=== PATIENT | male | born 1985 | race Caucasian/White ===

== ENCOUNTER 2016-10-08 20:38 | Emergency (ER) | payer OTHER ==
[~2016-10-08] VITALS: Ht 182.9 cm; Wt 92.0 kg
[2016-10-08 20:41] VITALS: BP 125/68; PULSE 77; RESP 15; TEMP 98.1; O2SAT 97
== END 2016-10-08 22:05 | disposition left against medical advice (07) ==
LOC: NED 20:38
DX: R23.8 Other skin changes (principal); Z53.21 Procedure and treatment not carried out due to patient leaving prior to being seen by health care provider
CPT/HCPCS: 99281

== ENCOUNTER 2017-03-26 21:12 | Inpatient (IN) | payer SELFPAY ==
[2017-03-26 21:14] VITALS: BP 130/70; PULSE 112; RESP 15; TEMP 99.8; O2SAT 96
--- NOTE | 2017-03-26 23:30 | PD ---
HPI Chief Complaint: Pain: Acute or Chronic Time Seen by Provider: 23:29 Travel History International Travel<30 days: No Contact w/Intl Traveler<30days: No Traveled to known affect area: No History of Present Illness HPI 31-year-old male came to the emergency room with history of right shoulder pain. Patient has history of osteomyelitis last year of the right shoulder joint and went through a major surgery. Patient says he was an IV drug abuser but has not used in past 1 year. This pain started again for past couple days. He's been running fever as well. Vital signs in triage had a temp of 99.5 and heart rate of 112. PFSH Past Medical History Narrative Medical List of his past medical, surgical, social and family history is reviewed from the nursing note. Bipolar Disorder: Yes Anxiety: Yes Depression: Yes Cancer: No Cardiovascular Problems: No Diminished Hearing: No Endocrine: No Genitourinary: No Headaches: Yes Hepatitis: Yes (HEP C) Immune Disorder: No Musculoskeletal: No Neurologic: No Psychiatric: Yes (BIPOLAR) Reproductive: No Respiratory: Yes Seizures: No Sleep Apnea: Yes Thyroid Disease: No Ulcer: No Past Surgical History Genitourinary Surgery: Yes ( CHILD ) Other Surgery: No Social History Alcohol Use: No (DENIES) Tobacco Use: Yes (1 PPD) Substance Use: No (DENIES 03-21-16) Allergies-Medications (Allergen,Severity, Reaction): Coded Allergies: *MDRO Multi-Drug Resistant Organism (Verified Adverse Reaction, Unknown, ) MRSA (blood & shoulder) - 01/2016 MRSA PCR screen (nares) positive - 02/07/16 Comments List of his allergies reviewed from the nursing note. Reported Meds & Prescriptions Reported Meds & Active Scripts Active No Active Prescriptions or Reported Medications Narrative Medication List of his home medications reviewed from the nursing note. Review of Systems Except as stated in HPI: all other systems reviewed are Neg Physical Exam Narrative GENERAL: Awake, alert, moderate distress SKIN: Focused skin assessment warm/dry. Scarring on the right shoulder HEAD: Atraumatic. Normocephalic. EYES: Pupils equal and round. No scleral icterus. No injection or drainage. ENT: No nasal bleeding or discharge. Mucous membranes pink and moist. NECK: Trachea midline. No JVD. CARDIOVASCULAR: Regular rate and rhythm. No murmur appreciated. RESPIRATORY: No accessory muscle use. Clear to auscultation. Breath sounds equal bilaterally. GASTROINTESTINAL: Abdomen soft, non-tender, nondistended. Hepatic and splenic margins not palpable. MUSCULOSKELETAL: No obvious deformities. No clubbing. No cyanosis. No edema. Tender to touch on the left shoulder, decreased range of motion NEUROLOGICAL: Awake and alert. No obvious cranial nerve deficits. Motor grossly within normal limits. Normal speech. PSYCHIATRIC: Appropriate mood and affect; insight and judgment normal. Data Data Last Documented VS Orders Orders Complete Blood Count With Diff (03/26/17 23:36) Comprehensive Metabolic Panel (03/26/17 23:36) Lactic Acid Sepsis Protocol (03/26/17 23:36) Urinalysis - C+S If Indicated (03/26/17 23:36) Blood Culture (03/26/17 23:36) Chest, Single Ap (03/26/17 23:36) Blood Glucose (03/26/17 23:36) Ecg Monitoring (03/26/17 23:36) Iv Access Insert/Monitor (03/26/17 23:36) Oximetry (03/26/17 23:36) Oxygen Administration (03/26/17 23:36) Vancomycin Inj (Vancomycin Inj) (03/26/17 23:36) Piperacil-Tazo 4.5 Gm Premix (Zosyn 4.5 (03/26/17 23:36) Sodium Chlor 0.9% 1000 Ml Inj (Ns 1000 M (03/26/17 23:45) Sodium Chlor 0.9% 1000 Ml Inj (Ns 1000 M (03/26/17 23:45) Ketorolac Inj (Toradol Inj) (03/26/17 23:45) Westergren Sedimentation Rate (03/26/17 23:38) Ct Shoulder W Iv Contrast (03/26/17 ) Drug Screen, Random Urine (03/26/17 23:38) C-Reactive Protein (Crp) (03/26/17 23:55) Iohexol 350 Inj (Omnipaque 350 Inj) (03/27/17 01:22) Admit To Inpatient (03/27/17 ) Vital Signs (Adult) Q4H (03/27/17 02:33) Activity Oob With Assistance (03/27/17 02:33) [employer] / Telemetry .CONTINUOUS (03/27/17 02:33) Sodium Chloride 0.9% Flush (Ns Flush) (03/27/17 02:45) Sodium Chloride 0.9% Flush (Ns Flush) (03/27/17 09:00) Case Management Consult (03/27/17 02:33) Naloxone Inj (Narcan Inj) (03/27/17 02:45) Inpatient Certification (03/27/17 ) Consult Infectious Disease (03/27/17 ) Admit Order (Ed Use Only) (03/27/17 02:37) Labs Laboratory Tests Test 03/26/17 23:55 03/27/17 00:30 03/27/17 02:35 Blood Urea Nitrogen 11 MG/DL Creatinine 1.12 MG/DL Random Glucose 108 MG/DL Total Protein 7.1 GM/DL Albumin 3.4 GM/DL Calcium Level 8.1 MG/DL Alkaline Phosphatase 93 U/L Aspartate Amino Transf (AST/SGOT) 25 U/L Alanine Aminotransferase (ALT/SGPT) 51 U/L Total Bilirubin 1.0 MG/DL Sodium Level 137 MEQ/L Potassium Level 4.1 MEQ/L Chloride Level 103 MEQ/L Carbon Dioxide Level 27.0 MEQ/L Anion Gap 7 MEQ/L Estimat Glomerular Filtration Rate 78 ML/MIN Lactic Acid Level 1.6 mmol/L C-Reactive Protein 8.70 MG/DL White Blood Count 10.6 TH/MM3 Red Blood Count 4.01 MIL/MM3 Hemoglobin 11.5 GM/DL Hematocrit 34.1 % Mean Corpuscular Volume 85.1 FL Mean Corpuscular Hemoglobin 28.5 PG Mean Corpuscular Hemoglobin Concent 33.5 % Red Cell Distribution Width 13.6 % Platelet Count 174 TH/MM3 Mean Platelet Volume 7.6 FL Neutrophils (%) (Auto) 67.0 % Lymphocytes (%) (Auto) 18.1 % Monocytes (%) (Auto) 13.6 % Eosinophils (%) (Auto) 0.9 % Basophils (%) (Auto) 0.4 % Neutrophils # (Auto) 7.1 TH/MM3 Lymphocytes # (Auto) 1.9 TH/MM3 Monocytes # (Auto) 1.4 TH/MM3 Eosinophils # (Auto) 0.1 TH/MM3 Basophils # (Auto) 0.0 TH/MM3 CBC Comment DIFF FINAL Differential Comment Erythrocyte Sedimentation Rate 24 mm/hr Urine Color YELLOW Urine Turbidity CLEAR Urine pH 6.5 Urine Specific [place] GREATER THAN 1.050 Urine Protein 30 mg/dL Urine Glucose (UA) NEG mg/dL Urine Ketones NEG mg/dL Urine Occult Blood NEG Urine Nitrite NEG Urine Bilirubin NEG Urine Urobilinogen LESS THAN 2.0 MG/DL Urine Leukocyte Esterase NEG Urine RBC 1 /hpf Urine WBC 1 /hpf Urine Squamous Epithelial Cells 1 /hpf Urine Bacteria RARE /hpf Urine Mucus FEW /lpf Microscopic Urinalysis Comment CATH-CULTURE IND Urine Opiates Screen POS Urine Barbiturates Screen NEG Urine Amphetamines Screen POS Urine Benzodiazepines Screen NEG Urine Cocaine Screen POS Urine Cannabinoids Screen NEG MDM Medical Decision Making Medical Screen Exam Complete: Yes Emergency Medical Condition: Yes Medical Record Reviewed: Yes Differential Diagnosis Osteomyelitis, possible IV drug abuse related, shoulder arthritis Narrative Course 1:35 AM blood test results are back. Patient CRP and sedimentation rate are elevated. Given his initial vital signs patient was approached as a sepsis and was given antibiotic and IV fluids as per sepsis protocol. CT scan has been ordered. Awaiting for the CT scan to be done and resulted. Patient was treated for pain. 2:[address] was suggestive of new changes suggesting acute osteomyelitis. Patient has been admitted to the hospitalist. Awaiting for the orthopedic consultation. 2:41 AM case was discussed with Dr. Machado from orthopedics who asked to put a consult for Dr. Cespedes since he had operated on this patient last year for osteomyelitis in the same site. Critical Care Narrative Aggregate critical care time was 45 minutes. Time to perform other separately billable procedures was not included in the critical care time. My time did not include minutes spent treating any other patients simultaneously or on activities that did not directly contribute to the patient's treatment. The services I provided to this patient were to treat and/or prevent clinically significant deterioration that could result in: Sepsis, sepsis protocol, acute ostial myelitis I provided critical care services requiring my management, as noted below: Chart data review, documentation time, medication orders and management, vital sign assessments/reviewing monitor data, ordering and reviewing lab tests, ordering and interpreting/reviewing x-rays and diagnostic studies, care of the patient and discussion of the patient with the admitting physicians. Procedures EKG Prior to Arrival: No Sepsis Criteria SIRS Criteria (2 or more): Heart rate over 90 Sepsis Criteria (SIRS+source): Infect source susp/known Physician Communication Physician Communication Dr. Machado Diagnosis Primary Impression: Acute osteomyelitis Additional Impression: Severe sepsis Admitting Information Admitting Physician Requests: Admit Scripts No Active Prescriptions or Reported Meds Dallin Kaiser MD Mar 26, 2017 23:30
[2017-03-26] MEDS ORDERED: PIPERACIL-TAZO 4.5 GM PREMIX 100 ML IV STA (23:36)
[2017-03-26] MEDS ORDERED: VANCOMYCIN INJ 1,000 MG in SODIUM CHLOR 0.9% 250 ML INJ 250 ML IV STA (23:36)
[2017-03-26] MEDS ORDERED: KETOROLAC TROMETHAMINE 30 MG/ML (IVP) VIAL IV PUSH ONE (23:45)
[2017-03-26] MEDS ORDERED: SODIUM CHLOR 0.9% 1000 ML INJ 1,000 ML IV ONE ×2 (23:45)
[2017-03-26 23:49] VITALS: RESP 16; O2SAT 98
--- NOTE | 2017-03-27 00:04 | RADRPT ---
EXAM DATE/TIME: 03/26/2017 23:49 [facility] COMPARISON: CHEST SINGLE AP, February 28, 2016, 10:19. INDICATIONS : Chest pain MEDICAL HISTORY : None. SURGICAL HISTORY : None. ENCOUNTER: Initial ACUITY: 1 day PAIN SCORE: 7/10 LOCATION: Bilateral chest FINDINGS: A single view of the chest demonstrates the lungs to be symmetrically aerated without evidence of mas s, infiltrate or effusion. The cardiomediastinal contours are unremarkable. Osseous structures are intact. CONCLUSION: 1. No acute cardiopulmonary disease. Selwyn Navarro MD on March 27, 2017 at 0:02 Board Certified Radiologist. This report was verified electronically.
[2017-03-27 00:23] LABS: ANION GAP 7 MEQ/L (5-15); AST (GOT) 25 U/L (15-37); BLOOD UREA NITROGEN 11 MG/DL (7-18); CHLORIDE 103 MEQ/L (98-107); GLOMERULAR FILTRATION RATE 78 ML/MIN (>89); POTASSIUM 4.1 MEQ/L (3.5-5.1); SODIUM (NA) 137 MEQ/L (136-145)
[2017-03-27 00:24] LABS: ALT (GPT) 51 U/L (12-78)
[2017-03-27 00:26] LABS: ALKALINE PHOSPHATASE 93 U/L (45-117)
[2017-03-27 00:45] LABS: AUTOMATED NEUTROPHIL # 7.1 TH/MM3 (1.8-7.7); BASOPHIL % 0.4 % (0.0-2.0); EOSINOPHIL # 0.1 TH/MM3 (0-0.4); EOSINOPHIL % 0.9 % (0.0-4.0); HEMATOCRIT 34.1 % (39.0-51.0); HEMO FLAGS DIFF FINAL; LYMPH % 18.1 % (9.0-44.0); LYMPHOCYTE # 1.9 TH/MM3 (1.0-4.8); MEAN CELL VOLUME 85.1 FL (80.0-100.0); MEAN CORPUSCULAR HEMOGLOBIN 28.5 PG (27.0-34.0); MEAN CORPUSCULAR HGB CONC 33.5 % (32.0-36.0); MONO % 13.6 % (0.0-8.0); PLATELET COUNT 174 TH/MM3 (150-450); RED BLOOD COUNT 4.01 MIL/MM3 (4.50-5.90); RED CELL DISTRIBUTION WIDTH 13.6 % (11.6-17.2); WHITE BLOOD COUNT 10.6 TH/MM3 (4.0-11.0)
[2017-03-27] MEDS ORDERED: IOHEXOL 350 MG/ML 10 ML VIAL (for RAD DIAG) IVCONTRAST ONE (01:22)
--- NOTE | 2017-03-27 02:16 | RADRPT ---
EXAM DATE/TIME: 03/27/2017 01:04 [facility] COMPARISON: CT THORAX W CONTRAST, February 26, 2016, 19:39. INDICATIONS : Right shoulder pain. Evaluate for osteomyelitis. IV CONTRAST: 100 cc Omnipaque 350 (iohexol) IV RADIATION DOSE: 29.76 CTDIvol (mGy) MEDICAL HISTORY : Hepatitis C. Osteomyelitis to right shoulder. SURGICAL HISTORY : None. ENCOUNTER: Initial ACUITY: 3 days PAIN SCALE: 8/10 LOCATION: Right shoulder. TECHNIQUE: Volumetric scanning of the shoulder was performed. Using automated exposure control and adjustment o f the mA and/or kV according to patient size, radiation dose was kept as low as reasonably achievable to obtain optimal diagnostic quality images. DICOM format image data is available electronically fo r review and comparison. FINDINGS: Previous examinations have demonstrated extensive destructive changes of the right clavicle and clavi cular osteomyelitis. There is diffusely increased sclerosis of the right clavicle with erosive change s along the inferior mid clavicle. There is indistinct soft tissue stranding in this region. There al so 2 small rounded likely metallic densities near this region. Small amount of air density in this re gion is likely venous in etiology. A remaining osseous structures are intact. The there are erosive c hanges of the clavicular head as well as the right first costovertebral junction which appear more ch ronic and similar to previous exam. Visualized portions of the right lung demonstrate minimal atelectasis at the lung base. Remaining sof t tissues are unremarkable. CONCLUSION: 1. Sequela of prior right clavicular osteomyelitis with new erosive changes along the inferior mid cl avicle and indistinct surrounding soft tissue stranding. This finding is concerning for acute osteomy elitis. No definitive drainable fluid collection. 2. Consider MRI examination for better evaluation given the extent of chronic changes in the right cl avicle. 1. Selwyn Navarro MD on March 27, 2017 at 2:03 Board Certified Radiologist. This report was verified electronically.
[2017-03-27] MEDS ORDERED: SODIUM CHLORIDE 0.9% FLUSH 10 ML FLUSH IV FLUSH PRN (02:45)
[2017-03-27] MEDS ORDERED: NALOXONE HCL 0.4 MG/ML AMP IV PRN (02:45)
[2017-03-27 02:59] LABS: BACTERIA, URINE RARE /hpf; BLOOD, URINE NEG (NEG); COMMENT (UR) CATH-CULTURE IND; CULTURE IF INDICATED CATH CULTURE IND; GLUCOSE,URINE NEG (NEG); KETONE, URINE NEG (NEG); MUCUS URINE FEW /lpf (OCC); NITRITE,URINE NEG (NEG); PH, URINE 6.5 (5.0-8.5); SQUAMOUS EPITHELIAL CELL URINE 1 /hpf (0-5); URINE COLOR YELLOW (YELLW/STRAW)
[2017-03-27 05:00] VITALS: BP 117/68; PULSE 63; RESP 18; TEMP 97.5; O2SAT 100
--- NOTE | 2017-03-27 08:27 | HHI.HP ---
[facility] No Primary Care Physician Admission Diagnosis acute osteomyelitis, sepsis Diagnoses: (1) Osteomyelitis of clavicle Chief Complaint: Right shoulder pain Travel History International Travel<30 Days: No Contact w/Intl Traveler <30 Da: No Traveled to Known Affected Are: No History of Present Illness The patient is a 31-year-old male with history of IV drug abuse and right apical osteomyelitis. He presented to the emergency department with complaint of worsening pain of the right shoulder for the past week. He reports fever, chills, night sweats. He had surgery for osteomyelitis of the right clavicle about a year ago. Has continued to use IV drugs, most recently Dilaudid a few days ago. Review of Systems Constitutional: COMPLAINS OF: Fever, Chills, Night Sweats Eyes: DENIES: Blurred vision, Vision loss Ears, nose, mouth, throat: DENIES: Hearing loss Respiratory: DENIES: Cough, Wheezing, Sputum production, Shortness of breath Cardiovascular: DENIES: Chest pain, Palpitations, Dyspnea on Exertion, Lower Extremity Edema Gastrointestinal: DENIES: Abdominal pain, Constipation, Diarrhea, Nausea, Vomiting Genitourinary: DENIES: Urinary frequency, Urinary incontinence, Urgency, Hematuria, Dysuria, Nocturia Musculoskeletal: COMPLAINS OF: Joint pain, DENIES: Muscle aches Integumentary: DENIES: Pruritus, Rash Hematologic/lymphatic: DENIES: Bruising Neurologic: DENIES: Headache Past Family Social History Past Medical History IV drug abuse Mood disorder History of hepatitis C per EMR History of osteomyelitis of the right clavicle Past Surgical History Right clavicle surgery for osteomyelitis Reported Medications None Allergies: Coded Allergies: *MDRO Multi-Drug Resistant Organism (Verified Adverse Reaction, Unknown, ) MRSA (blood & shoulder) - 01/2016 MRSA PCR screen (nares) positive - 02/07/16 Family History The patient states that he does not know his family's medical history Social History Smokes one pack per day. Reports recent IV drug use, Dilaudid. Denies alcohol use. Physical Exam Vital Signs Vital Signs Date Time Temp Pulse Resp B/P (MAP) Pulse Ox O2 Delivery O2 Flow Rate FiO2 03/27/17 05:00 97.5 63 18 117/68 (84) 100 03/26/17 23:49 16 98 Room Air 03/26/17 23:49 98 Room Air 03/26/17 21:14 99.8 112 15 130/70 (90) 96 Room Air Physical Exam GENERAL: Well-nourished, well-developed male in no acute distress. HEENT: Normocephalic, atraumatic. Pupils equal, round and reactive. Extraocular movements intact. No scleral icterus. No injection or drainage. Oropharynx is clear. Mucous membranes are moist. MUSCULOSKELETAL: Tenderness over the right clavicle. CARDIOVASCULAR: Regular rate and rhythm without murmurs, gallops, or rubs. RESPIRATORY: Clear to auscultation. No wheezes, rales, or rhonchi. Breathing is non-labored. GASTROINTESTINAL: Abdomen soft, non-tender, nondistended. EXTREMITIES: No lower extremity edema. No calf tenderness. PSYCH: Alert and oriented x 3. Laboratory Laboratory Tests Test 03/26/17 23:55 03/27/17 00:30 03/27/17 02:35 Blood Urea Nitrogen 11 Creatinine 1.12 Random Glucose 108 Total Protein 7.1 Albumin 3.4 Calcium Level 8.1 Alkaline Phosphatase 93 Aspartate Amino Transf (AST/SGOT) 25 Alanine Aminotransferase (ALT/SGPT) 51 Total Bilirubin 1.0 Sodium Level 137 Potassium Level 4.1 Chloride Level 103 Carbon Dioxide Level 27.0 Anion Gap 7 Estimat Glomerular Filtration Rate 78 Lactic Acid Level 1.6 C-Reactive Protein 8.70 White Blood Count 10.6 Red Blood Count 4.01 Hemoglobin 11.5 Hematocrit 34.1 Mean Corpuscular Volume 85.1 Mean Corpuscular Hemoglobin 28.5 Mean Corpuscular Hemoglobin Concent 33.5 Red Cell Distribution Width 13.6 Platelet Count 174 Mean Platelet Volume 7.6 Neutrophils (%) (Auto) 67.0 Lymphocytes (%) (Auto) 18.1 Monocytes (%) (Auto) 13.6 Eosinophils (%) (Auto) 0.9 Basophils (%) (Auto) 0.4 Neutrophils # (Auto) 7.1 Lymphocytes # (Auto) 1.9 Monocytes # (Auto) 1.4 Eosinophils # (Auto) 0.1 Basophils # (Auto) 0.0 CBC Comment DIFF FINAL Differential Comment Erythrocyte Sedimentation Rate 24 Urine Color YELLOW Urine Turbidity CLEAR Urine pH 6.5 Urine Specific [place] GREATER THAN 1.050 Urine Protein 30 Urine Glucose (UA) NEG Urine Ketones NEG Urine Occult Blood NEG Urine Nitrite NEG Urine Bilirubin NEG Urine Urobilinogen LESS THAN 2.0 Urine Leukocyte Esterase NEG Urine RBC 1 Urine WBC 1 Urine Squamous Epithelial Cells 1 Urine Bacteria RARE Urine Mucus FEW Microscopic Urinalysis Comment CATH-CULTURE IND Urine Opiates Screen POS Urine Barbiturates Screen NEG Urine Amphetamines Screen POS Urine Benzodiazepines Screen NEG Urine Cocaine Screen POS Urine Cannabinoids Screen NEG Date/Time Source Procedure Growth Status 03/26/17 23:55 Blood Peripheral Aerobic Blood Culture Pending Received 03/26/17 23:55 Blood Peripheral Anaerobic Blood Culture Pending Received 03/27/17 02:35 Urine Catheterized Urine Urine Culture Pending Received Result Diagram: 03/27/17 0030 03/26/17 2355 Imaging Last Impressions Chest X-Ray 03/26/17 2336 Signed Impressions: Service Date/Time: March 23:49 - CONCLUSION: 1. No acute cardiopulmonary disease. Selwyn Navarro MD Upper Extremity CT 03/26/17 0000 Signed Impressions: Service Date/Time: Monday, March 27, 2017 01:04 - CONCLUSION: 1. Sequela of prior right clavicular osteomyelitis with new erosive changes along the inferior mid clavicle and indistinct surrounding soft tissue stranding. This finding is concerning for acute osteomyelitis. No definitive drainable fluid collection. 2. Consider MRI examination for better evaluation given the extent of chronic changes in the right clavicle. 1. MD Nancy Fregosoi VTE Risk Assessment Caprini VTE Risk Assessment: No/Low Risk (score <= 1) Caprini Risk Assessment Model Point Value = 1 Point Value = 2 Point Value = 3 Point Value = 5 Age 41-60 Minor surgery BMI > 25 kg/m2 Swollen legs Varicose veins or History of unexplained or recurrent spontaneous Oral contraceptives or hormone replacement Sepsis (< 1 month) Serious lung disease, including pneumonia (< 1 month) Abnormal pulmonary function Acute myocardial infarction Congestive heart failure (< 1 month) History of inflammatory bowel disease Medical patient at bed rest Age 61-74 Arthroscopic surgery Major open surgery (> 45 min) Laparoscopic surgery (> 45 min) Malignancy Confined to bed (> 72 hours) Immobilizing plaster cast Central venous access Age >= 75 History of VTE Family history of VTE Factor V Leiden Prothrombin [id number] Lupus anticoagulant Anticardiolipin antibodies Elevated serum homocysteine Heparin-induced thrombocytopenia Other congenital or acquired thrombophilia Stroke (< 1 month) Elective arthroplasty Hip, pelvis, or leg fracture Acute spinal cord injury (< 1 month) Prophylaxis Regimen Total Risk Factor Score Risk Level Prophylaxis Regimen 0-1 Low Early ambulation 2 Moderate Order ONE of the following: *Sequential Compression Device (SCD) *Heparin 5000 units SQ BID 3-4 Higher Order ONE of the following medications: *Heparin 5000 units SQ TID *Enoxaparin/Lovenox 40 mg SQ daily (WT < 150 kg, CrCl > 30 mL/min) *Enoxaparin/Lovenox 30 mg SQ daily (WT < 150 kg, CrCl > 10-29 mL/min) *Enoxaparin/Lovenox 30 mg SQ BID (WT < 150 kg, CrCl > 30 mL/min) AND/OR *Sequential Compression Device (SCD) 5 or more Highest Order ONE of the following medications: *Heparin 5000 units SQ TID (Preferred with Epidurals) *Enoxaparin/Lovenox 40 mg SQ daily (WT < 150 kg, CrCl > 30 mL/min) *Enoxaparin/Lovenox 30 mg SQ daily (WT < 150 kg, CrCl > 10-29 mL/min) *Enoxaparin/Lovenox 30 mg SQ BID (WT < 150 kg, CrCl > 30 mL/min) AND *Sequential Compression Device (SCD) Assessment and Plan Assessment and Plan 1. Osteomyelitis, right clavicle: Imaging shows sequela of prior right clavicle osteomyelitis with new erosive changes concerning for acute osteomyelitis. Sedimentation rate and CRP are elevated. Infectious disease and orthopedic surgery consultations have been requested. Continue IV antibiotics. 2. Polysubstance abuse, IV drug abuse: Counseled to quit. 3. Tobacco abuse: Counseled to quit smoking. Drew Salazar MD Mar 27, 2017 08:27
[2017-03-27 08:41] VITALS: BP 110/64; PULSE 81; RESP 16; TEMP 98.5; O2SAT 100
[2017-03-27] MEDS ORDERED: SODIUM CHLORIDE 0.9% FLUSH 10 ML FLUSH IV FLUSH SCH (09:00)
== END 2017-03-27 09:20 | disposition left against medical advice (07) | DRG 872 ==
LOC: NED 21:12 → NEPE 21:12 → NED 22:45 → NEDA 03-27 02:39 → N05B 03-27 04:49
PROVIDERS: ADMIT Family Medicine; ATTEND Family Medicine
DX: A41.9 Sepsis, unspecified organism (principal); M86.111 Other acute osteomyelitis, right shoulder; F31.9 Bipolar disorder, unspecified; R65.20 Severe sepsis without septic shock; F17.210 Nicotine dependence, cigarettes, uncomplicated
CPT/HCPCS: 71010; 73201; 80053; 80307; 81001; 83605; 85025; 85652; 86140; 86403; 87040; 87077; 87086; 87186; 96365; 96366; 96368; 96375; 99291; J1885; J2543; J3370; J7030; J7050; Q9967

== ENCOUNTER 2017-04-15 23:25 | Observation (INO) | payer SELFPAY ==
[~2017-04-15] VITALS: Ht 182.9 cm; Wt 95.0 kg
[2017-04-15 23:26] VITALS: BP 140/92; PULSE 110; RESP 16; TEMP 99.1; O2SAT 95
[2017-04-16 00:11] VITALS: BP 142/76; PULSE 93; RESP 18; TEMP 99.9; O2SAT 97
--- NOTE | 2017-04-16 00:37 | PD ---
HPI Chief Complaint: Chest Pain Time Seen by Provider: 00:11 Travel History International Travel<30 days: No Contact w/Intl Traveler<30days: No Traveled to known affect area: No History of Present Illness HPI The patient is 31 year old male who presents to the [facility] emergency department with a history of chest pain and shortness of breath that began a week ago. It is associated with intermittent sweating. He has had a subjective fever. He has had cough and congestion that began 4-5 days ago. The cough is productive of a green sputum. He reports that the pain is in the left side of his chest. He reports that is a pressure sensation. He reports that the pain is coming and going. On review of systems, he denies any recent neck pain, abdominal pain, vomiting, diarrhea, urinary symptoms, or neurologic symptoms. His last BM was today. No blood in his stool. He smokes 1ppd. He has been using IV drugs intermittent for 4-5 years. He last used Dilaudid today. He last injected cocaine 2 days ago. He incidentally also reports having increased pain in his right shoulder/clavicle. He reports that a year ago he developed osteomyelitis. [facility] Past Medical History Narrative Medical The patient's past medical history is significant for Hepatitis C, IV drug use, osteomyelitis of the right clavicle. Bipolar Disorder: Yes Anxiety: Yes Depression: Yes Cancer: No Cardiovascular Problems: No Diabetes: No Diminished Hearing: No Endocrine: No Gastrointestinal Disorders: No Genitourinary: No Headaches: Yes Hepatitis: Yes (HEP C) Immune Disorder: No Implanted Vascular Access Dvce: No Medical other: Yes (OSTEOMYLITIS RIGHT SHOULDER) Musculoskeletal: No Neurologic: No Psychiatric: Yes (BIPOLAR) Reproductive: No Respiratory: Yes Immunizations Current: Yes Seizures: No Sleep Apnea: Yes Thyroid Disease: No Ulcer: No Tetanus Vaccination: < 5 Years Influenza Vaccination: No Past Surgical History Narrative Surgical The patient's past surgical history is significant for osteomyelitis of the right clavicle related to IV drug use a year ago. Genitourinary Surgery: Yes ( CHILD ) Other Surgery: No Social History Alcohol Use: No (DENIES) Tobacco Use: Yes (1 PPD) Substance Use: Yes (IV DILAUDID- today, IV COCAINE) Allergies-Medications (Allergen,Severity, Reaction): Coded Allergies: *MDRO Multi-Drug Resistant Organism (Verified Adverse Reaction, Unknown, ) MRSA (blood & shoulder) - 01/2016 MRSA PCR screen (nares) positive - 02/07/16 Reported Meds & Prescriptions Reported Meds & Active Scripts Active No Active Prescriptions or Reported Medications Review of Systems Except as stated in HPI: all other systems reviewed are Neg General / Constitutional: Positive: Fever, Chills Eyes: No: Visual changes HENT: Positive: Congestion, No: Headaches, Neck Pain Cardiovascular: Positive: Chest Pain or Discomfort, Diaphoresis, Dyspnea on exertion Respiratory: Positive: Cough, Shortness of Breath Gastrointestinal: No: Nausea, Vomiting, Diarrhea, Abdominal Pain Genitourinary: No: Dysuria Musculoskeletal: No: Pain Skin: No Rash Neurologic: No: Weakness, Focal Abnormalities, Change in Mentation, Slurred Speech, Sensory Disturbance Psychiatric: No: Depression Endocrine: No: Polydipsia Hematologic/Lymphatic: No: Easy Bruising Physical Exam Narrative General: The patient is a well-developed well-nourished male in no acute distress. Head and Neck exam: Head is normocephalic atraumatic. Eyes: EOMI, pupils are equal round and reactive to light. Nose: Midline septum with pink mucous membranes Mouth: Dentition unremarkable. Moist mucus membranes. Posterior oropharynx is not erythematous. No tonsillar hypertrophy. Uvula midline. Airway patent. Neck: No palpable lymphadenopathy. No nuchal rigidity. No thyromegaly. Cardiovascular: Regular rate and rhythm without murmurs, gallops, or rubs. No pulse deficit to the extremities and simultaneous auscultation and palpation of his radial artery. Lungs: Clear to auscultation bilaterally. No wheezes, rhonchi, or rales. Abdomen: Soft, without tenderness to palpation in all 4 quadrants of the abdomen. No guarding, rebound, or rigidity. Normal bowel sounds are audible. No tenderness on palpation of McBurney's point. Extremities: No clubbing, cyanosis, or edema. 2+ pulses in all 4 extremities. The patient on examination of the right shoulder, distal clavicle has scarring present over it. There is no erythema, edema, or warmth. The patient has no loss of range of motion of the right shoulder. The patient reports having tenderness overlying the scar. Back: No spinous process tenderness to palpation. No costovertebral angle tenderness to palpation. Neurologic Exam: Grossly nonfocal. Skin Exam: No rash noted. Intact skin that is warm and dry. Data Data Last Documented VS Vital Signs Date Time Temp Pulse Resp B/P (MAP) Pulse Ox O2 Delivery O2 Flow Rate FiO2 04/16/17 03:00 79 16 130/80 (97) 99 Room Air 04/16/17 00:11 99.9 Orders Orders Electrocardiogram (04/16/17 00:34) Complete Blood Count With Diff (04/16/17 00:34) Basic Metabolic Panel (Bmp) (04/16/17 00:34) Ckmb (Isoenzyme) Profile (04/16/17 00:34) Troponin I (04/16/17 00:34) Chest, Single Ap (04/16/17 00:34) Iv Access Insert/Monitor (04/16/17 00:34) Ecg Monitoring (04/16/17 00:34) Oxygen Administration (04/16/17 00:34) Oximetry (04/16/17 00:34) Urinalysis - C+S If Indicated (04/16/17 00:38) Drug Screen, Random Urine (04/16/17 00:38) Blood Culture (04/16/17 01:04) C-Reactive Protein (Crp) (04/16/17 01:04) Westergren Sedimentation Rate (04/16/17 01:04) Lactic Acid Sepsis Protocol (04/16/17 01:04) Admit Order (Ed Use Only) (04/16/17 03:20) Labs Laboratory Tests Test 04/16/17 00:45 04/16/17 01:20 White Blood Count 10.9 TH/MM3 Red Blood Count 4.88 MIL/MM3 Hemoglobin 14.1 GM/DL Hematocrit 40.7 % Mean Corpuscular Volume 83.4 FL Mean Corpuscular Hemoglobin 28.8 PG Mean Corpuscular Hemoglobin Concent 34.6 % Red Cell Distribution Width 13.9 % Platelet Count 233 TH/MM3 Mean Platelet Volume 8.0 FL Neutrophils (%) (Auto) 80.9 % Lymphocytes (%) (Auto) 11.9 % Monocytes (%) (Auto) 6.7 % Eosinophils (%) (Auto) 0.3 % Basophils (%) (Auto) 0.2 % Neutrophils # (Auto) 8.8 TH/MM3 Lymphocytes # (Auto) 1.3 TH/MM3 Monocytes # (Auto) 0.7 TH/MM3 Eosinophils # (Auto) 0.0 TH/MM3 Basophils # (Auto) 0.0 TH/MM3 CBC Comment DIFF FINAL Differential Comment Erythrocyte Sedimentation Rate 27 mm/hr Blood Urea Nitrogen 9 MG/DL Creatinine 1.15 MG/DL Random Glucose 100 MG/DL Calcium Level 9.2 MG/DL Sodium Level 139 MEQ/L Potassium Level 4.0 MEQ/L Chloride Level 104 MEQ/L Carbon Dioxide Level 30.0 MEQ/L Anion Gap 5 MEQ/L Estimat Glomerular Filtration Rate 75 ML/MIN Total Creatine Kinase 83 U/L Troponin I LESS THAN 0.02 NG/ML C-Reactive Protein 3.69 MG/DL Lactic Acid Level 1.2 mmol/L MDM Medical Decision Making Medical Screen Exam Complete: Yes Emergency Medical Condition: Yes Medical Record Reviewed: Yes Differential Diagnosis Acute coronary syndrome, versus endocarditis, versus anxiety disorder, versus acid reflux, versus pericarditis Narrative Course During the course of the patients emergency department visit, the patients history, examination, and differential diagnosis were reviewed with the patient. The patient had IV access obtained and blood work sent for analysis. The patient was placed on a helper chicken farm with oximetry and blood pressure monitoring. An ECG was done on arrival. The patient's ECG reveals a sinus rhythm heart rate of 92, no acute ST segment elevation or depression, QRS duration is 102 ms, QTc is 400 ms. The patient was initially provided aspirin 324 mg by mouth 1, nitroglycerin 1 inch the chest wall. The patient was given Tylenol for reported headache. The patients laboratory studies were reviewed and remarkable for a white count of 10.9, hemoglobin 14.1, platelets 233 with 80.9 neutrophils, sedimentation rate is 27. Basic metabolic profile is remarkable for a GFR 75, CPK 83, troponin I less than 0.02, C-reactive protein 3.69, lactic acid 1.2. Blood cultures 2 have been drawn. Radiology studies were reviewed and remarkable for a chest x-ray that shows minimal basilar atelectasis. No focal consolidation or effusion. Stable sclerotic changes in the right clavicle compared with March 26, please see recent CT report according to the reading radiologist. The patient's prior laboratory studies were reviewed from his last admission on March 27, sedimentation rate at that time was 24 and now is 27. Blood cultures on his last evaluation were negative. CRP done previously was 8.70 and now is lower at 3.69. I think it is of low likelihood that the patient has endocarditis due to his recent blood cultures that were negative. However, the patient reports that the chest pain is unlike anything he has had before. He is concerned that it may be life-threatening. The patient will be admitted to the chest pain center for rule out serial cardiac enzyme protocol. Once the patient is ruled out, the patient is safe for discharge home. I explained to him that if blood cultures were to come back positive he would be called immediately. The patients results were discussed with the patient, including the plan of care. I explained that further testing and/ or monitoring is indicated based on the patients history, examination, and/ or laboratory findings. Therefore, I recommended admission for additional evaluation. The patient expressed understanding and was agreeable with this plan. The patient was admitted to the hospital in stable condition and sent to a bed under the care of the chest pain center. Diagnosis Primary Impression: Chest pain, rule out acute myocardial infarction Admitting Information Admitting Physician Requests: Observation Scripts No Active Prescriptions or Reported Meds Hodan Earl MD Apr 16, 2017 00:37
[2017-04-16 00:59] LABS: AUTOMATED NEUTROPHIL # 8.8 TH/MM3 (1.8-7.7); BASOPHIL % 0.2 % (0.0-2.0); EOSINOPHIL % 0.3 % (0.0-4.0); HEMATOCRIT 40.7 % (39.0-51.0); HEMO FLAGS DIFF FINAL; LYMPH % 11.9 % (9.0-44.0); LYMPHOCYTE # 1.3 TH/MM3 (1.0-4.8); MEAN CELL VOLUME 83.4 FL (80.0-100.0); MEAN CORPUSCULAR HEMOGLOBIN 28.8 PG (27.0-34.0); MEAN CORPUSCULAR HGB CONC 34.6 % (32.0-36.0); MONO % 6.7 % (0.0-8.0); NEUT % 80.9 % (16.0-70.0); PLATELET COUNT 233 TH/MM3 (150-450); RED BLOOD COUNT 4.88 MIL/MM3 (4.50-5.90); RED CELL DISTRIBUTION WIDTH 13.9 % (11.6-17.2); WHITE BLOOD COUNT 10.9 TH/MM3 (4.0-11.0)
[2017-04-16 01:08] LABS: ANION GAP 5 MEQ/L (5-15); BLOOD UREA NITROGEN 9 MG/DL (7-18); CHLORIDE 104 MEQ/L (98-107); GLOMERULAR FILTRATION RATE 75 ML/MIN (>89); SODIUM (NA) 139 MEQ/L (136-145)
[2017-04-16 01:13] LABS: CREATINE KINASE 83 U/L (39-308)
--- NOTE | 2017-04-16 01:32 | RADRPT ---
EXAM DATE/TIME: 04/16/2017 00:43 [facility] COMPARISON: CT SHOULDER RIGHT W CONTRAST, March 27, 2017, 1:04. INDICATIONS : Chest pain. MEDICAL HISTORY : None. SURGICAL HISTORY : None. ENCOUNTER: Initial ACUITY: 4 - 6 days PAIN SCORE: 6/10 LOCATION: Right chest FINDINGS: A single view of the chest demonstrates the lungs to be symmetrically aerated without evidence of mas s, infiltrate or effusion. The cardiomediastinal contours are unremarkable. Sclerosis involving the right clavicle. See recent CT report. CONCLUSION: 1. Minimal basilar atelectasis. No focal consolidation or effusion. Stable sclerotic changes in the r ight clavicle compared with March 26. See recent CT report. Segun Auguste MD on April 16, 2017 at 1:29 Board Certified Radiologist. This report was verified electronically.
[2017-04-16 03:00] VITALS: BP 130/80; PULSE 79; RESP 16; O2SAT 99
[2017-04-16] MEDS ORDERED: ACETAMINOPHEN 325 MG TAB PO ONE (03:45)
[2017-04-16] MEDS ORDERED: ONDANSETRON HCL 4 MG/2 ML VIAL IV PUSH PRN (04:00)
[2017-04-16] MEDS ORDERED: SODIUM CHLORIDE 0.9% FLUSH 10 ML FLUSH IV FLUSH PRN (04:00)
[2017-04-16] MEDS ORDERED: ASPIRIN 81 MG CHEW TAB CHEW ONE (04:00)
[2017-04-16] MEDS ORDERED: ACETAMINOPHEN 500 MG CPLT PO PRN (04:00)
[2017-04-16] MEDS ORDERED: NITROGLYCERIN 2% OINT 1 GM PACKET TOPICAL ONE (04:15)
[2017-04-16 05:29] LABS: CREATINE KINASE 61 U/L (39-308)
[2017-04-16 05:52] VITALS: BP 107/52; PULSE 72; RESP 17; TEMP 98.2; O2SAT 94
[2017-04-16 06:42] VITALS: PULSE 69
[2017-04-16 07:21] VITALS: BP 100/58; PULSE 65; RESP 16; TEMP 98.4; O2SAT 97
[2017-04-16 08:08] VITALS: PULSE 58
--- NOTE | 2017-04-16 08:12 | HHI.HP ---
HPI Primary Care Physician Diamond Mendoza MD Chief Complaint Chest tightness, dyspnea History of Present Illness 31-year-old male with history of osteomyelitis, bipolar disorder, and IV drug abuse presents to emergency room for further evaluation of increased dyspnea, chest tightness, and diaphoresis. Onset Thursday reports increase in dyspnea, diaphoresis, and intermittent chest tightness. States he was at [facility] being treated for endocarditis and he signed out AMA during [place] stating to help his family. He presents here today to determine if he could restart antibiotic treatment. He does not recall how many doses he completed or how long her was expected to complete therapy. Onset of chest tightness 2 days. No radiation of pain. No associated symptoms of nausea or vomiting. Occurs when he becomes dyspneic followed by diaphoresis. Review of Systems General: No fatigue,weakness, fever, or chills. HEENT: No BARNEY CV: No CP, pressure, or discomfort. No palpitations or dizziness. RESP: No SOB, cough, sputum production. GI: No nausea, vomiting, or bowel changes. : No dysuria MS: No discomfort or change in ROM NEURO: No difficulty with balance, LOC, motor/sensory deficits PSYCH: No current anxiety or depression. No suicidal ideation. SKIN: No rashes, no concerning lesions Past Family Social History Allergies: Coded Allergies: *MDRO Multi-Drug Resistant Organism (Verified Adverse Reaction, Unknown, ) MRSA (blood & shoulder) - 01/2016 MRSA PCR screen (nares) positive - 02/07/16 Past Medical History IV drug abuse, mood disorder, history of hepatitis C, history of osteomyelitis of right clavicle Past Surgical History Right clavicle surgery for osteomyelitis Reported Medications Reported Meds & Active Scripts Active No Active Prescriptions or Reported Medications Active Ordered Medications Current Medications Medications (Trade) Dose Ordered Sig/Aziza Route Start Time Stop Time Status Last Admin (NS Flush) 2 ml UNSCH PRN IV FLUSH 04/16/17 04:00 (NS Flush) 2 ml BID IV FLUSH 04/16/17 09:00 04/16/17 08:03 (Tylenol) 500 mg Q4H PRN PO 04/16/17 04:00 (Zofran Inj) 4 mg Q6H PRN IV PUSH 04/16/17 04:00 Family History Unknown Social History No known diabetes, hypertension, or hyperlipidemia. Current smoker smokes one pack/daily. Endorses IV drug abuse with Dilaudid. Past cardiac testing None Physical Exam Vital Signs Vital Signs Date Time Temp Pulse Resp B/P (MAP) Pulse Ox O2 Delivery O2 Flow Rate FiO2 04/16/17 08:08 58 04/16/17 07:21 98.4 65 16 100/58 (72) 97 04/16/17 06:42 69 04/16/17 05:52 98.2 72 17 107/52 (70) 94 04/16/17 05:34 04/16/17 04:07 21 04/16/17 03:00 79 16 130/80 (97) 99 Room Air 04/16/17 00:11 99.9 93 18 142/76 (98) 97 Room Air 04/15/17 23:26 99.1 110 16 140/92 (108) 95 Room Air Physical Exam GENERAL: Alert WN, WD, NAD, male HEAD: NC, AT CV: RRR, without murmur, rub, gallop, no JVD, S1-S2 no S3-S4. RESP: Clear lungs throughout bilateral, no crackles, wheeze, rhonchi, symmetrical chest rise, nonlabored, able to speak in full sentences ABD: Soft, NT, ND, no masses, positive bowel tones BACK: No scoliosis EXT: Pulses +24, no dependent edema MS: Normal tone 4 extremities, nontender, no obvious deformities, full range of motion NEURO: CN II through CN XII grossly intact, motor strength 5/5, gait WNL PSYCH: A+O 3, flat affect, appropriate speech, poor insight and judgment regarding recent diagnosis of endocarditis and signing out AMA SKIN: Normal turgor, normal texture Laboratory Laboratory Tests Test 04/16/17 00:45 04/16/17 01:20 04/16/17 04:30 04/16/17 07:50 White Blood Count 10.9 Red Blood Count 4.88 Hemoglobin 14.1 Hematocrit 40.7 Mean Corpuscular Volume 83.4 Mean Corpuscular Hemoglobin 28.8 Mean Corpuscular Hemoglobin Concent 34.6 Red Cell Distribution Width 13.9 Platelet Count 233 Mean Platelet Volume 8.0 Neutrophils (%) (Auto) 80.9 Lymphocytes (%) (Auto) 11.9 Monocytes (%) (Auto) 6.7 Eosinophils (%) (Auto) 0.3 Basophils (%) (Auto) 0.2 Neutrophils # (Auto) 8.8 Lymphocytes # (Auto) 1.3 Monocytes # (Auto) 0.7 Eosinophils # (Auto) 0.0 Basophils # (Auto) 0.0 CBC Comment DIFF FINAL Differential Comment Erythrocyte Sedimentation Rate 27 Blood Urea Nitrogen 9 Creatinine 1.15 Random Glucose 100 Calcium Level 9.2 Sodium Level 139 Potassium Level 4.0 Chloride Level 104 Carbon Dioxide Level 30.0 Anion Gap 5 Estimat Glomerular Filtration Rate 75 Total Creatine Kinase 83 61 Troponin I LESS THAN 0.02 LESS THAN 0.02 C-Reactive Protein 3.69 Lactic Acid Level 1.2 Date/Time Source Procedure Growth Status 04/16/17 01:23 Blood Peripheral Aerobic Blood Culture Pending Received 04/16/17 01:23 Blood Peripheral Anaerobic Blood Culture Pending Received Result Diagram: 04/16/17 0045 04/16/17 0045 Imaging Last Impressions Chest X-Ray 04/16/17 0034 Signed Impressions: Service Date/Time: , April 16, 2017 00:43 - CONCLUSION: 1. Minimal basilar atelectasis. No focal consolidation or effusion. Stable sclerotic changes in the right clavicle compared with March 26. See recent CT report. Segun Auguste MD Course EKG Normal sinus rhythm, normal axis, no ST or T-segment changes Caprini VTE Risk Assessment Caprini VTE Risk Assessment: No/Low Risk (score <= 1) Caprini Risk Assessment Model Point Value = 1 Point Value = 2 Point Value = 3 Point Value = 5 Age 41-60 Minor surgery BMI > 25 kg/m2 Swollen legs Varicose veins or History of unexplained or recurrent spontaneous Oral contraceptives or hormone replacement Sepsis (< 1 month) Serious lung disease, including pneumonia (< 1 month) Abnormal pulmonary function Acute myocardial infarction Congestive heart failure (< 1 month) History of inflammatory bowel disease Medical patient at bed rest Age 61-74 Arthroscopic surgery Major open surgery (> 45 min) Laparoscopic surgery (> 45 min) Malignancy Confined to bed (> 72 hours) Immobilizing plaster cast Central venous access Age >= 75 History of VTE Family history of VTE Factor V Leiden Prothrombin [id number] Lupus anticoagulant Anticardiolipin antibodies Elevated serum homocysteine Heparin-induced thrombocytopenia Other congenital or acquired thrombophilia Stroke (< 1 month) Elective arthroplasty Hip, pelvis, or leg fracture Acute spinal cord injury (< 1 month) Prophylaxis Regimen Total Risk Factor Score Risk Level Prophylaxis Regimen 0-1 Low Early ambulation 2 Moderate Order ONE of the following: *Sequential Compression Device (SCD) *Heparin 5000 units SQ BID 3-4 Higher Order ONE of the following medications: *Heparin 5000 units SQ TID *Enoxaparin/Lovenox 40 mg SQ daily (WT < 150 kg, CrCl > 30 mL/min) *Enoxaparin/Lovenox 30 mg SQ daily (WT < 150 kg, CrCl > 10-29 mL/min) *Enoxaparin/Lovenox 30 mg SQ BID (WT < 150 kg, CrCl > 30 mL/min) AND/OR *Sequential Compression Device (SCD) 5 or more Highest Order ONE of the following medications: *Heparin 5000 units SQ TID (Preferred with Epidurals) *Enoxaparin/Lovenox 40 mg SQ daily (WT < 150 kg, CrCl > 30 mL/min) *Enoxaparin/Lovenox 30 mg SQ daily (WT < 150 kg, CrCl > 10-29 mL/min) *Enoxaparin/Lovenox 30 mg SQ BID (WT < 150 kg, CrCl > 30 mL/min) AND *Sequential Compression Device (SCD) Assessment and Plan Assessment and Plan Atypical chest pain-admitted chest pain center. Ruled out with 3 sets of EKGs, cardiac enzymes, and monitored overnight. Seen and evaluated by Dr. Loy Nix. Dr. Nix discussed in length with patient severity of diagnosis of endocarditis. Will obtain medical records from [facility]. If records indicate diagnoses of endocarditis, plan to transfer service to hospitalist. No further cardiac testing required at this time. Tobacco use-strongly encouraged and stressed the importance of tobacco cessation. Instructed patient to quit smoking tobacco. IV drug use-also strongly encouraged to stop using IV drugs 11:55 Notified by RN patient leaving AMA. Spoke with patient in length regarding severity of recent diagnosis of endocarditis (per his report, still awaiting records from [facility]). He still wants to sign out AMA , stating he is going to [facility]. Radha Lomas Apr 16, 2017 08:11
[2017-04-16 08:40] LABS: CREATINE KINASE 50 U/L (39-308)
[2017-04-16] MEDS ORDERED: NITROGLYCERIN 0.4 MG SL 25 TABS/BTL SL PRN (09:00)
[2017-04-16] MEDS ORDERED: SODIUM CHLORIDE 0.9% FLUSH 10 ML FLUSH IV FLUSH SCH (09:00)
[2017-04-16 12:46] LABS: BACTERIA, URINE OCC /hpf; BLOOD, URINE NEG (NEG); COMMENT (UR) CULT NOT INDICATED; CULTURE IF INDICATED CULT NOT INDICATED; GLUCOSE,URINE NEG (NEG); KETONE, URINE NEG (NEG); NITRITE,URINE NEG (NEG); PH, URINE 7.5 (5.0-8.5); SQUAMOUS EPITHELIAL CELL URINE <1 /hpf (0-5); URINE COLOR YELLOW (YELLW/STRAW)
--- NOTE | 2017-04-16 14:59 | EKG ---
Date Performed: 04/16/2017 Time Performed: 04:46:22 PTAGE: 31 years EKG: Sinus rhythm BORDERLINE ECG PREVIOUS TRACING : 04/16/2017 04.45 Since previous tracing, no significant change noted DOCTOR: Loy Nix Interpretating Date/Time 04/16/2017 14:59:37
--- NOTE | 2017-04-16 15:01 | EKG ---
Date Performed: 04/16/2017 Time Performed: 00:08:24 PTAGE: 31 years EKG: Sinus rhythm NORMAL ECG PREVIOUS TRACING : 09/19/2001 19.02 Since previous tracing, no significant change noted DOCTOR: Loy Nix Interpretating Date/Time 04/16/2017 15:00:26
--- NOTE | 2017-04-16 15:02 | EKG ---
Date Performed: 04/16/2017 Time Performed: 07:13:30 PTAGE: 31 years EKG: Sinus rhythm BORDERLINE ECG PREVIOUS TRACING : 04/16/2017 04.46 DOCTOR: Loy Nix Interpretating Date/Time 04/16/2017 15:01:20
== END 2017-04-16 12:53 | disposition left against medical advice (07) ==
LOC: NEPC 23:25 → NEDA 04-16 03:22 → NEPGCP 04-16 05:39
PROVIDERS: ADMIT Internal Medicine Cardiovascular Disease; ATTEND Internal Medicine Cardiovascular Disease
DX: R07.89 Other chest pain (principal); I38 Endocarditis, valve unspecified; R06.02 Shortness of breath; F19.90 Other psychoactive substance use, unspecified, uncomplicated; M25.511 Pain in right shoulder; B19.20 Unspecified viral hepatitis C without hepatic coma; R51 Headache; G47.30 Sleep apnea, unspecified; F17.210 Nicotine dependence, cigarettes, uncomplicated; M86.9 Osteomyelitis, unspecified; R06.00 Dyspnea, unspecified
CPT/HCPCS: 71010; 80048; 81001; 82550; 83605; 84484; 85025; 85652; 86140; 87040; 93005; 99285; G0378

== ENCOUNTER 2017-04-24 22:32 | Inpatient (IN) | payer SELFPAY ==
[~2017-04-24] VITALS: Ht 182.9 cm; Wt 91.0 kg
[2017-04-24 22:36] VITALS: BP 132/87; PULSE 85; RESP 16; TEMP 98.4; O2SAT 99
[2017-04-24 23:24] VITALS: BP 123/67; PULSE 88; RESP 16; O2SAT 98
[2017-04-24] MEDS ORDERED: SODIUM CHLOR 0.9% 1000 ML INJ 1,000 ML IV ONE ×3 (23:37)
--- NOTE | 2017-04-24 23:44 | PD ---
HPI Chief Complaint: Cardiac Complaint Time Seen by Provider: 23:20 Travel History International Travel<30 days: No Contact w/Intl Traveler<30days: No Traveled to known affect area: No History of Present Illness HPI The patient is a 31 year-old male who presents to the emergency department for chest pain, shortness of breath, and right shoulder pain. The patient has a history of endocarditis. Smile is the right scapula. The patient states he was admitted to the hospital one month at [facility] where he was diagnosed with endocarditis. The patient states he signed out against medical communication specialist. The patient was then admitted to [facility] for possible osteomyelitis of the right scapula and signed out against medical communication specialist. The patient was then admitted for chest pain to the chest pain Center to sign out against medical communication specialist. The patient states he has been having fevers, chills, chest pain, shortness of breath. The patient believes it is secondary to his endocarditis and would like to receive treatment. The patient last used IV drugs, Dilaudid, this morning. He last use illicit drugs earlier today by sniffing/snorting Subutex. The patient's symptoms are moderate, exacerbated by history of IVDA, and there are no current alleviating factors. PFSH Past Medical History Blood Disorders: No Bipolar Disorder: Yes Anxiety: Yes Depression: Yes Cancer: No Cardiovascular Problems: Yes (ENDOCARDITIS) Chemotherapy: No Diabetes: No Diminished Hearing: No Endocrine: No Gastrointestinal Disorders: No Genitourinary: No Headaches: Yes Hepatitis: Yes (HEP C) Immune Disorder: No Implanted Vascular Access Dvce: No Musculoskeletal: No Neurologic: No Psychiatric: Yes (BIPOLAR) Reproductive: No Respiratory: Yes Immunizations Current: Yes Radiation Therapy: No Seizures: No Sleep Apnea: Yes Thyroid Disease: No Ulcer: No Past Surgical History Genitourinary Surgery: Yes ( CHILD ) Other Surgery: No Social History Alcohol Use: No (DENIES) Tobacco Use: Yes (1 PPD) Substance Use: Yes (IV DILAUDID , IV CRACK) Allergies-Medications (Allergen,Severity, Reaction): Coded Allergies: *MDRO Multi-Drug Resistant Organism (Verified Adverse Reaction, Unknown, 04/24/17) MRSA (blood & shoulder) - 01/2016 MRSA PCR screen (nares) positive - 02/07/16 Reported Meds & Prescriptions Reported Meds & Active Scripts Active No Active Prescriptions or Reported Medications Review of Systems Except as stated in HPI: all other systems reviewed are Neg General / Constitutional: Positive: Fever, Chills HENT: No: Lightheadedness Cardiovascular: Positive: Chest Pain or Discomfort, Dyspnea on exertion Respiratory: Positive: Shortness of Breath Gastrointestinal: Positive: Nausea, Vomiting, No: Abdominal Pain Musculoskeletal: Positive: Weakness Psychiatric: Positive: Substance Abuse Physical Exam Narrative GENERAL: Awake, alert, pleasant 31-year-old male who appears his stated age and is in no acute respiratory distress. SKIN: Focused skin assessment warm, slightly diaphoretic across the forehead. HEAD: Atraumatic. Normocephalic. EYES: Pupils equal and round. No scleral icterus. No injection or drainage. ENT: No nasal bleeding or discharge. Mucous membranes pink and moist. NECK: Trachea midline. No JVD. CARDIOVASCULAR: Regular rate and rhythm. Heart rate in the 90s. Holosystolic murmur. RESPIRATORY: No accessory muscle use. Clear to auscultation. Breath sounds equal bilaterally. GASTROINTESTINAL: Abdomen soft, non-tender, nondistended. No rebound tenderness. MUSCULOSKELETAL: No obvious deformities. No clubbing. No cyanosis. No edema. Track gracia noted over the left acute antecubital fossa and anterior aspect the left forearm. Scarring noted over the right shoulder with scar from previous debridement of osteomyelitis. NEUROLOGICAL: Awake and alert. No obvious cranial nerve deficits. Motor grossly within normal limits. Normal speech. Nonfocal. PSYCHIATRIC: Appropriate mood and affect; insight and judgment normal. Data Data Last Documented VS Vital Signs Date Time Temp Pulse Resp B/P (MAP) Pulse Ox O2 Delivery O2 Flow Rate FiO2 04/24/17 23:24 88 16 123/67 (85) 98 Room Air 04/24/17 22:36 98.4 Orders Orders Electrocardiogram (04/24/17 23:37) Complete Blood Count With Diff (04/24/17 23:37) Comprehensive Metabolic Panel (04/24/17 23:37) Lactic Acid Sepsis Protocol (04/24/17 23:37) Magnesium (Mg) (04/24/17 23:37) Ckmb (Isoenzyme) Profile (04/24/17 23:37) Troponin I (04/24/17 23:37) Urinalysis - C+S If Indicated (04/24/17 23:37) Blood Culture (04/24/17 23:37) Chest, Single Ap (04/24/17 23:37) Blood Glucose (04/24/17 23:37) Ecg Monitoring (04/24/17 23:37) Iv Access Insert/Monitor (04/24/17 23:37) Oximetry (04/24/17 23:37) Oxygen Administration (04/24/17 23:37) Acetaminophen (Tylenol) (04/24/17 23:45) Ondansetron Inj (Zofran Inj) (04/24/17 23:45) Sodium Chlor 0.9% 1000 Ml Inj (Ns 1000 M (04/24/17 23:37) Sodium Chlor 0.9% 1000 Ml Inj (Ns 1000 M (04/24/17 23:37) Sodium Chlor 0.9% 1000 Ml Inj (Ns 1000 M (04/24/17 23:37) C-Reactive Protein (Crp) (04/24/17 23:37) Westergren Sedimentation Rate (04/24/17 23:37) Vancomycin Inj (Vancomycin Inj) (04/25/17 01:00) Mri Upper Arm W&W/O Contrast (04/25/17 ) Consult Infectious Disease (04/25/17 ) Lorazepam Inj (Ativan Inj) (04/25/17 01:45) Admit To Inpatient (04/25/17 ) Vital Signs (Adult) Q4H (04/25/17 01:39) Activity Oob Ad Dana (04/25/17 01:39) Toe Laster / Telemetry .CONTINUOUS (04/25/17 01:39) Diet Regular Basic (04/25/17 Breakfast) Sodium Chloride 0.9% Flush (Ns Flush) (04/25/17 01:45) Sodium Chloride 0.9% Flush (Ns Flush) (04/25/17 09:00) Ondansetron Inj (Zofran Inj) (04/25/17 01:45) Comprehensive Metabolic Panel (04/26/17 06:00) Complete Blood Count With Diff (04/26/17 06:00) Troponin I (04/25/17 06:00) Troponin I (04/25/17 12:00) Heparin Inj (Heparin Inj) (04/25/17 09:00) Acetaminophen (Tylenol) (04/25/17 01:45) Docusate Sodium-Senna (Shante-Colace) (04/25/17 09:00) Magnesium Hydroxide Liq (Milk Of Magnesi (04/25/17 01:45) Sennosides (Senokot) (04/25/17 01:45) Bisacodyl Supp (Dulcolax Supp) (04/25/17 01:45) Lactulose Liq (Lactulose Liq) (04/25/17 01:45) Inpatient Certification (04/25/17 ) Labs Laboratory Tests Test 04/24/17 23:45 04/25/17 01:16 White Blood Count 10.9 TH/MM3 Red Blood Count 4.68 MIL/MM3 Hemoglobin 13.3 GM/DL Hematocrit 39.0 % Mean Corpuscular Volume 83.2 FL Mean Corpuscular Hemoglobin 28.4 PG Mean Corpuscular Hemoglobin Concent 34.1 % Red Cell Distribution Width 14.1 % Platelet Count 233 TH/MM3 Mean Platelet Volume 7.9 FL Neutrophils (%) (Auto) 79.6 % Lymphocytes (%) (Auto) 11.0 % Monocytes (%) (Auto) 7.4 % Eosinophils (%) (Auto) 1.7 % Basophils (%) (Auto) 0.3 % Neutrophils # (Auto) 8.7 TH/MM3 Lymphocytes # (Auto) 1.2 TH/MM3 Monocytes # (Auto) 0.8 TH/MM3 Eosinophils # (Auto) 0.2 TH/MM3 Basophils # (Auto) 0.0 TH/MM3 CBC Comment DIFF FINAL Differential Comment Erythrocyte Sedimentation Rate 16 mm/hr Blood Urea Nitrogen 13 MG/DL Creatinine 1.11 MG/DL Random Glucose 106 MG/DL Total Protein 7.6 GM/DL Albumin 3.7 GM/DL Calcium Level 8.6 MG/DL Magnesium Level 2.3 MG/DL Alkaline Phosphatase 101 U/L Aspartate Amino Transf (AST/SGOT) 23 U/L Alanine Aminotransferase (ALT/SGPT) 47 U/L Total Bilirubin 0.6 MG/DL Sodium Level 140 MEQ/L Potassium Level 3.8 MEQ/L Chloride Level 107 MEQ/L Carbon Dioxide Level 27.8 MEQ/L Anion Gap 5 MEQ/L Estimat Glomerular Filtration Rate 78 ML/MIN Lactic Acid Level 0.9 mmol/L Total Creatine Kinase 100 U/L Troponin I LESS THAN 0.02 NG/ML C-Reactive Protein 1.36 MG/DL MDM Medical Decision Making Medical Screen Exam Complete: Yes Emergency Medical Condition: Yes Medical Record Reviewed: Yes Interpretation(s) EKG reveals sinus bradycardia with sinus arrhythmia. No ischemic changes noted. Last Impressions Chest X-Ray 04/24/17 [id number] Signed Impressions: Service Date/Time: Monday, April 24, 2017 23:47 - CONCLUSION: Normal examination. Terence Oneal Jr., MD Laboratory Tests Test 04/24/17 23:45 White Blood Count 10.9 TH/MM3 Red Blood Count 4.68 MIL/MM3 Hemoglobin 13.3 GM/DL Hematocrit 39.0 % Mean Corpuscular Volume 83.2 FL Mean Corpuscular Hemoglobin 28.4 PG Mean Corpuscular Hemoglobin Concent 34.1 % Red Cell Distribution Width 14.1 % Platelet Count 233 TH/MM3 Mean Platelet Volume 7.9 FL Neutrophils (%) (Auto) 79.6 % Lymphocytes (%) (Auto) 11.0 % Monocytes (%) (Auto) 7.4 % Eosinophils (%) (Auto) 1.7 % Basophils (%) (Auto) 0.3 % Neutrophils # (Auto) 8.7 TH/MM3 Lymphocytes # (Auto) 1.2 TH/MM3 Monocytes # (Auto) 0.8 TH/MM3 Eosinophils # (Auto) 0.2 TH/MM3 Basophils # (Auto) 0.0 TH/MM3 CBC Comment DIFF FINAL Differential Comment Erythrocyte Sedimentation Rate 16 mm/hr Blood Urea Nitrogen 13 MG/DL Creatinine 1.11 MG/DL Random Glucose 106 MG/DL Total Protein 7.6 GM/DL Albumin 3.7 GM/DL Calcium Level 8.6 MG/DL Magnesium Level 2.3 MG/DL Alkaline Phosphatase 101 U/L Aspartate Amino Transf (AST/SGOT) 23 U/L Alanine Aminotransferase (ALT/SGPT) 47 U/L Total Bilirubin 0.6 MG/DL Sodium Level 140 MEQ/L Potassium Level 3.8 MEQ/L Chloride Level 107 MEQ/L Carbon Dioxide Level 27.8 MEQ/L Anion Gap 5 MEQ/L Estimat Glomerular Filtration Rate 78 ML/MIN Lactic Acid Level 0.9 mmol/L Total Creatine Kinase 100 U/L Troponin I LESS THAN 0.02 NG/ML C-Reactive Protein 1.36 MG/DL Differential Diagnosis Differential diagnosis includes IV drug abuse, endocarditis, septic emboli, osteomyelitis, opiate withdrawal, noncompliance. Narrative Course IV was established, labs are drawn and sent, and the patient was placed on cardiac telemetry monitoring and continuous pulse oximetry monitoring. EKG was ordered and interpreted. The patient was administered IV fluids and Zofran. ESR and CRP were sent to lab. Blood cultures and lactic acid were sent to lab. We attempted to obtain records from [facility] in regards to the endocarditis and ultrasound findings, with blood culture results. Chest x- rays unremarkable. White count is unremarkable. Lactic acid is normal. I reviewed the patient's medical record from [facility], he had a transthoracic echocardiogram performed on April 18, 2017, there was no evidence of endocarditis. I reviewed the patient's EMR, he had a CT of the upper extremity which noted new erosive changes to the inferior aspect the clavicle concerning for acute osteomyelitis, MRI was recommended. Patient states he is having chest pain and shortness of breath with right shoulder pain , concerning for possible osteomyelitis versus malingering. The patient continues to use illicit drugs including Subutex by snorting and Dilaudid by intravenous route. However, the patient does have a history of osteomyelitis, may benefit from MRI to rule out osteomyelitis and if negative outpatient follow -up. He does have a history of noncompliance. The on-call medical service was paged for admission. Physician Communication Physician Communication [facility] were paged for admission. I discussed the patient with Dr. Douglas who agrees with admission. Diagnosis Primary Impression: Osteomyelitis of clavicle Scripts No Active Prescriptions or Reported Meds Condition: Stable Suhail Worthy MD Apr 24, 2017 23:44
[2017-04-24] MEDS ORDERED: ONDANSETRON HCL 4 MG/2 ML VIAL IV PUSH ONE (23:45)
[2017-04-24] MEDS ORDERED: ACETAMINOPHEN 325 MG TAB PO ONE (23:45)
[2017-04-24 23:59] LABS: AUTOMATED NEUTROPHIL # 8.7 TH/MM3 (1.8-7.7); BASOPHIL % 0.3 % (0.0-2.0); EOSINOPHIL # 0.2 TH/MM3 (0-0.4); EOSINOPHIL % 1.7 % (0.0-4.0); HEMO FLAGS DIFF FINAL; LYMPHOCYTE # 1.2 TH/MM3 (1.0-4.8); MEAN CELL VOLUME 83.2 FL (80.0-100.0); MEAN CORPUSCULAR HEMOGLOBIN 28.4 PG (27.0-34.0); MEAN CORPUSCULAR HGB CONC 34.1 % (32.0-36.0); MONO % 7.4 % (0.0-8.0); NEUT % 79.6 % (16.0-70.0); PLATELET COUNT 233 TH/MM3 (150-450); RED BLOOD COUNT 4.68 MIL/MM3 (4.50-5.90); RED CELL DISTRIBUTION WIDTH 14.1 % (11.6-17.2); WHITE BLOOD COUNT 10.9 TH/MM3 (4.0-11.0)
[2017-04-25 00:12] LABS: ALT (GPT) 47 U/L (12-78); ANION GAP 5 MEQ/L (5-15); AST (GOT) 23 U/L (15-37); BICARBONATE 27.8 MEQ/L (21.0-32.0); BLOOD UREA NITROGEN 13 MG/DL (7-18); CHLORIDE 107 MEQ/L (98-107); GLOMERULAR FILTRATION RATE 78 ML/MIN (>89); MAGNESIUM 2.3 MG/DL (1.5-2.5); POTASSIUM 3.8 MEQ/L (3.5-5.1); SODIUM (NA) 140 MEQ/L (136-145)
--- NOTE | 2017-04-25 00:13 | RADRPT ---
EXAM DATE/TIME: 04/24/2017 23:47 [facility] COMPARISON: CHEST SINGLE AP, April 16, 2017, 0:43. INDICATIONS : Chest pain and headache x 1 week MEDICAL HISTORY : Hepatitis C. Endocarditis SURGICAL HISTORY : Right shoulder surgery ENCOUNTER: Initial ACUITY: 1 week PAIN SCORE: 7/10 LOCATION: Bilateral chest FINDINGS: A single view of the chest demonstrates the lungs to be symmetrically aerated without evidence of mas s, infiltrate or effusion. The cardiomediastinal contours are unremarkable. Osseous structures are intact. CONCLUSION: Normal examination. Terence Oneal Jr., MD on April 25, 2017 at 0:11 Board Certified Radiologist. This report was verified electronically.
[2017-04-25 00:15] LABS: ALKALINE PHOSPHATASE 101 U/L (45-117); TOTAL BILIRUBIN ADULT 0.6 MG/DL (0.2-1.0)
[2017-04-25 00:21] LABS: CREATINE KINASE 100 U/L (39-308)
[2017-04-25] MEDS ORDERED: VANCOMYCIN INJ 1,000 MG in SODIUM CHLOR 0.9% 250 ML INJ 250 ML IV ONE (01:00)
[2017-04-25] MEDS ORDERED: SENNOSIDES 8.6 MG TAB PO PRN (01:45)
[2017-04-25] MEDS ORDERED: ACETAMINOPHEN 325 MG TAB PO PRN (01:45)
[2017-04-25] MEDS ORDERED: BISACODYL 10 MG SUPP RECTAL PRN (01:45)
[2017-04-25] MEDS ORDERED: MAGNESIUM HYDROXIDE SUSP 30 ML CUP PO PRN (01:45)
[2017-04-25] MEDS ORDERED: SODIUM CHLORIDE 0.9% FLUSH 10 ML FLUSH IV FLUSH PRN (01:45)
[2017-04-25] MEDS ORDERED: LORazepam 2 MG/ML VIAL IV PUSH PRN (01:45)
[2017-04-25] MEDS ORDERED: LACTULOSE SYRUP 20 GM/30 ML CUP PO PRN (01:45)
[2017-04-25] MEDS ORDERED: ONDANSETRON HCL 4 MG/2 ML VIAL IVP PRN (01:45)
[2017-04-25] MEDS ORDERED: ALPRAZolam 0.25 MG TAB PO PRN (02:15)
[2017-04-25 02:16] LABS: BLOOD, URINE NEG (NEG); COMMENT (UR) CATH-CULT NOT IND; CULTURE IF INDICATED CATH CULTURE NOT IND; GLUCOSE,URINE NEG (NEG); KETONE, URINE NEG (NEG); NITRITE,URINE NEG (NEG); PH, URINE 5.5 (5.0-8.5); SQUAMOUS EPITHELIAL CELL URINE <1 /hpf (0-5); URINE COLOR YELLOW (YELLW/STRAW)
[2017-04-25] MEDS ORDERED: NICOTINE 21 MG/24 HR PATCH T-DERMAL PRN (02:30)
--- NOTE | 2017-04-25 02:44 | HHI.HP ---
HPI Service [facility] Primary Care Physician No Primary Care Physician Admission Diagnosis clavicular osteomyelitis, IV drug abuse Diagnoses: (1) Chest pain Diagnosis: Principal (2) Osteomyelitis of clavicle Diagnosis: Principal (3) IVDU (intravenous drug user) Diagnosis: Principal (4) Anxiety Diagnosis: Principal (5) Tobacco abuse Diagnosis: Principal Travel History International Travel<30 Days: No Contact w/Intl Traveler <30 Da: No Traveled to Known Affected Are: No History of Present Illness This is a 31-year-old male with a PMH of Bipolar Disorder, Anxiety, Depression, Right Clavicle Osteomyelitis, IVDU and Tobacco Abuse who presented to the ER w/ complaints of chest pain. Presented to [place] [facility] 03/27/17 for similar complaints , in addition to right clavicular pain. S/p CT RUE 03/27/17 w/ sequela of right clavicular osteomyelitis w/ new erosive changes concerning for acute osteomyelitis, recommendation for MRI, however pt LEFT AMA. States he went to [facility] and was diagnosed w/ Endocarditis 03/30/17, however LEFT AMA from there as well. Returned to [place] 04/16/17, admitted to [facility] for c /o chest pain, however LEFT AMA, and re-admitted to [facility] 04/18/17 for chest pain once again. Records from showing Blood Cultures 1/3 positive for Gram + cocci, thought to be contaminant. Echo 04/18/17 w/ no evidence of vegetation, EF 60-65%. Blood Cultures here 03/26/17 negative x2, repeat Blood Cultures 04/16/17 also negative x2. On arrival, BP 132/82, HR 85, O2 sat 99% on RA, Afebrile. ESR 16, previously 27 on 04/16/17. Chemistry essentially unremarkable except for GFR 78. Troponin negative. CXR normal. Review of Systems Except as stated in HPI: all other systems reviewed are Neg ROS: 14 point review of systems otherwise negative. Past Family Social History Past Medical History PMH: Bipolar Disorder, Anxiety, Depression, Right Clavicle Osteomyelitis, IVDU and Tobacco Abuse Past Surgical History PAST SURGICAL HISTORY: Right Clavicle Surgery Allergies: Coded Allergies: *MDRO Multi-Drug Resistant Organism (Verified Adverse Reaction, Unknown, 04/24/17) MRSA (blood & shoulder) - 01/2016 MRSA PCR screen (nares) positive - 02/07/16 Family History PAST FAMILY HISTORY: Reviewed. No h/o DM or CAD Social History PAST SOCIAL HISTORY: Negative for alcohol. Smokes 1ppd. IVDU Dilaudid/Crack, +snorts Subutex Physical Exam Vital Signs Vital Signs Date Time Temp Pulse Resp B/P (MAP) Pulse Ox O2 Delivery O2 Flow Rate FiO2 04/24/17 23:24 88 16 123/67 (85) 98 Room Air 04/24/17 22:36 98.4 85 16 132/87 (102) 99 Room Air Physical Exam PE: GENERAL: Young white male in no acute distress. HEENT: PERRLA, EOMI. No scleral icterus or conjunctival pallor. No lid lag or facial droop. CARDIOVASCULAR: Regular rate and rhythm. No obvious murmurs to auscultation. No chest tenderness to palpation. RESPIRATORY: No obvious rhonchi or wheezing. Clear to auscultation. Breath sounds equal bilaterally. GASTROINTESTINAL: Abdomen soft, non-tender, nondistended. BS normal. MUSCULOSKELETAL: Extremities without clubbing, cyanosis, or edema. No obvious deformities. Right shoulder scarring from previous surgical intervention. Pulses intact. +track gracia NEUROLOGICAL: Awake, alert and oriented x4. No focal neurologic deficits. Moving both upper and lower extremities spontaneously. Laboratory Laboratory Tests Test 04/24/17 23:45 04/25/17 01:16 White Blood Count 10.9 Red Blood Count 4.68 Hemoglobin 13.3 Hematocrit 39.0 Mean Corpuscular Volume 83.2 Mean Corpuscular Hemoglobin 28.4 Mean Corpuscular Hemoglobin Concent 34.1 Red Cell Distribution Width 14.1 Platelet Count 233 Mean Platelet Volume 7.9 Neutrophils (%) (Auto) 79.6 Lymphocytes (%) (Auto) 11.0 Monocytes (%) (Auto) 7.4 Eosinophils (%) (Auto) 1.7 Basophils (%) (Auto) 0.3 Neutrophils # (Auto) 8.7 Lymphocytes # (Auto) 1.2 Monocytes # (Auto) 0.8 Eosinophils # (Auto) 0.2 Basophils # (Auto) 0.0 CBC Comment DIFF FINAL Differential Comment Erythrocyte Sedimentation Rate 16 Blood Urea Nitrogen 13 Creatinine 1.11 Random Glucose 106 Total Protein 7.6 Albumin 3.7 Calcium Level 8.6 Magnesium Level 2.3 Alkaline Phosphatase 101 Aspartate Amino Transf (AST/SGOT) 23 Alanine Aminotransferase (ALT/SGPT) 47 Total Bilirubin 0.6 Sodium Level 140 Potassium Level 3.8 Chloride Level 107 Carbon Dioxide Level 27.8 Anion Gap 5 Estimat Glomerular Filtration Rate 78 Lactic Acid Level 0.9 Total Creatine Kinase 100 Troponin I LESS THAN 0.02 C-Reactive Protein 1.36 Urine Color YELLOW Urine Turbidity HAZY Urine pH 5.5 Urine Specific Treece 1.028 Urine Protein NEG Urine Glucose (UA) NEG Urine Ketones NEG Urine Occult Blood NEG Urine Nitrite NEG Urine Bilirubin NEG Urine Urobilinogen 2.0 Urine Leukocyte Esterase NEG Urine RBC 2 Urine WBC 2 Urine Squamous Epithelial Cells <1 Microscopic Urinalysis Comment CATH-CULT NOT IND Date/Time Source Procedure Growth Status 04/24/17 23:45 Blood Peripheral Aerobic Blood Culture Pending Received 04/24/17 23:45 Blood Peripheral Anaerobic Blood Culture Pending Received Result Diagram: 04/24/17 2345 04/24/17 2345 Caprini VTE Risk Assessment Caprini VTE Risk Assessment: No/Low Risk (score <= 1) Caprini Risk Assessment Model Point Value = 1 Point Value = 2 Point Value = 3 Point Value = 5 Age 41-60 Minor surgery BMI > 25 kg/m2 Swollen legs Varicose veins or History of unexplained or recurrent spontaneous Oral contraceptives or hormone replacement Sepsis (< 1 month) Serious lung disease, including pneumonia (< 1 month) Abnormal pulmonary function Acute myocardial infarction Congestive heart failure (< 1 month) History of inflammatory bowel disease Medical patient at bed rest Age 61-74 Arthroscopic surgery Major open surgery (> 45 min) Laparoscopic surgery (> 45 min) Malignancy Confined to bed (> 72 hours) Immobilizing plaster cast Central venous access Age >= 75 History of VTE Family history of VTE Factor V Leiden Prothrombin [id number] Lupus anticoagulant Anticardiolipin antibodies Elevated serum homocysteine Heparin-induced thrombocytopenia Other congenital or acquired thrombophilia Stroke (< 1 month) Elective arthroplasty Hip, pelvis, or leg fracture Acute spinal cord injury (< 1 month) Prophylaxis Regimen Total Risk Factor Score Risk Level Prophylaxis Regimen 0-1 Low Early ambulation 2 Moderate Order ONE of the following: *Sequential Compression Device (SCD) *Heparin 5000 units SQ BID 3-4 Higher Order ONE of the following medications: *Heparin 5000 units SQ TID *Enoxaparin/Lovenox 40 mg SQ daily (WT < 150 kg, CrCl > 30 mL/min) *Enoxaparin/Lovenox 30 mg SQ daily (WT < 150 kg, CrCl > 10-29 mL/min) *Enoxaparin/Lovenox 30 mg SQ BID (WT < 150 kg, CrCl > 30 mL/min) AND/OR *Sequential Compression Device (SCD) 5 or more Highest Order ONE of the following medications: *Heparin 5000 units SQ TID (Preferred with Epidurals) *Enoxaparin/Lovenox 40 mg SQ daily (WT < 150 kg, CrCl > 30 mL/min) *Enoxaparin/Lovenox 30 mg SQ daily (WT < 150 kg, CrCl > 10-29 mL/min) *Enoxaparin/Lovenox 30 mg SQ BID (WT < 150 kg, CrCl > 30 mL/min) AND *Sequential Compression Device (SCD) Assessment and Plan Problem List: (1) Chest pain ICD Code: R07.9 - Chest pain, unspecified (2) Osteomyelitis of clavicle ICD Code: M86.9 - Osteomyelitis, unspecified Status: Acute (3) Anxiety ICD Code: F41.9 - Anxiety disorder, unspecified (4) IVDU (intravenous drug user) ICD Code: F19.90 - Other psychoactive substance use, unspecified, uncomplicated (5) Tobacco abuse ICD Code: Z72.0 - Tobacco use Assessment and Plan A/P: 1. Chest Pain: h/o IVDU, concern for Endocarditis. Pt reports previous diagnosis of Endocarditis, however no confirmation of this based on records sent from [facility], Blood Cultures 1/3 positive, thought to be contaminant, Echo 04/18/17 negative for vegetation (records in chart). Ongoing IVDU w/ chest pain, R/o Endocarditis. S/p Blood Cultures in ER, Vanc IV. Follow up cultures. In light of multiple negative blood cultures, no fever, no leukocytosis and ESR trending down, will hold off on antibiotics at this time. Consult ID for further recommendations. 2. Right Clavicle Osteomyelitis: Chronic, possible Acute Osteo. CT RUE w/ sequela of prior right clavicular osteomyelitis with new erosive changes concerning for acute osteomyelitis, no drainable fluid collection, recommendation for MRI. Will obtain MRI RUE for further evaluation of possible acute infection. 3. Anxiety: H/o Anxiety, reports significant anxiety as underlying cause for LEAVING AMA on multiple occasions. Xanax prn. 4. IVDU: Ongoing, last use this am. Ativan prn for withdrawal. 5. Tobacco Abuse: NicoDerm prn if needed. 6. DVT Prophylaxis: SCD/Teds. 7. Social work for d/c planning as needed. 8. Case discussed w/ ER physician at length. Physician Certification 2 Midnight Certification Type: Admission for Inpatient Services Order for Inpatient Services The services are ordered in accordance with Medicare regulations or non- Medicare payer requirements, as applicable. In the case of services not specified as inpatient-only, they are appropriately provided as inpatient services in accordance with the 2-midnight benchmark. Estimated LOS (days): 2 days is the estimated time the patient will need to remain in the hospital, assuming treatment plan goals are met and no additional complications. Post-Hospital Plan: Not yet determined Tonya Douglas MD Apr 25, 2017 02:44
[2017-04-25 03:05] VITALS: BP 118/54; PULSE 65; RESP 16; TEMP 98; O2SAT 98
[2017-04-25 04:03] VITALS: PULSE 57
[2017-04-25 08:00] VITALS: BP 111/64; PULSE 47; RESP 18; TEMP 97.6; O2SAT 100
[2017-04-25] MEDS ORDERED: GADODIAMIDE PF 287 MG/ML 20 ML VIAL (for RAD MRI) IVCONTRAST ONE (08:51)
[2017-04-25] MEDS ORDERED: HEPARIN SODIUM - SQ 10,000 UNITS/ML VIAL SQ SCH (09:00)
[2017-04-25] MEDS ORDERED: DOCUSATE SODIUM 50 MG/SENNA 8.6 MG TAB PO SCH (09:00)
[2017-04-25] MEDS ORDERED: SODIUM CHLORIDE 0.9% FLUSH 10 ML FLUSH IV FLUSH SCH (09:00)
--- NOTE | 2017-04-25 09:14 | RADRPT ---
EXAM DATE/TIME: 04/25/2017 08:31 [facility] COMPARISON: MRI SHOULDER RIGHT W & W/O CONTRAST, March 27, 2016, 12:23. INDICATIONS : Osteomyelitis. CONTRAST: 18 cc Omniscan (gadodiamide) IV MEDICAL HISTORY : Osteomyelitis. IVDA SURGICAL HISTORY : Biopsy and debridement of right clavicle. ENCOUNTER: Sequela ACUITY: 2 day PAIN SCORE: 2/10 LOCATION: Right upper extremity. TECHNIQUE: Multiplanar multisequence MRI examination of the humerus was performed with and without contrast. FINDINGS: There is limited visualization of the right shoulder. The large area of abnormal enhancement and bibiana a which was present involving the right clavicle and rotator cuff is no longer identified. There is good visualization of the humeral head and humeral diaphysis. The cortex appears intact. No abnormal contrast enhancement is identified. No findings to indicate osteomyelitis of the humerus are evident. The biceps, triceps and deltoid all appear intact. CONCLUSION: 1. Significant interval improvement compared to previous examination. The large areas of edema and en hancement surrounding the distal clavicle and the rotator cuff are no longer identified. 2. The right humerus is intact. No findings to indicate osteomyelitis of the humerus are evident. Asad Villasenor MD on April 25, 2017 at 9:06 Board Certified Radiologist. This report was verified electronically.
[2017-04-25 12:00] VITALS: BP 121/71; PULSE 51; RESP 18; TEMP 97.8; O2SAT 99
--- NOTE | 2017-04-25 13:41 | HHI.DCPOC ---
Discharge Care Plan Diagnosis: (1) Osteomyelitis of clavicle (2) Sepsis (3) IVDU (intravenous drug user) Goals to Promote Your Health * To prevent worsening of your condition and complications * To maintain your health at the optimal level Directions to Meet Your Goals Take your medications as prescribed Follow your dietary instruction Follow activity as directed Keep your appointments as scheduled Take your immunizations and boosters as scheduled If your symptoms worsen call your PCP, if no PCP go to Urgent Care Center or Emergency Room Smoking is Dangerous to Your Health. Avoid second hand smoke Call the 24-hour hour crisis hotline for domestic abuse at Seng Burgess DO Apr 25, 2017 13:41
--- NOTE | 2017-04-25 13:43 | PD.AMA ---
Against Medical Advice Note Diagnosis: (1) IVDU (intravenous drug user) (2) Osteomyelitis of clavicle (3) Chest pain Discharge Disposition: Against Medical Advice Pt Condition on Discharge: Stable Recommended Treatment Course Antibiotics, ID consultation, monitoring of cultures AMA Statement Patient Seng Gregory has decided to leave the hospital against medical advice. This patient has the capacity to refuse care and understands the risks of leaving, including permanent disability and/or , and has had an opportunity to ask questions about his condition. The patient has been informed that he may return for care at any time, and follow up has been arranged/advised. Seng Burgess DO Apr 25, 2017 13:43
--- NOTE | 2017-04-25 14:23 | EKG ---
Date Performed: 04/25/2017 Time Performed: 00:46:42 PTAGE: 31 years EKG: SINUS BRADYCARDIA WITH SINUS ARRHYTHMIA BORDERLINE ECG PREVIOUS TRACING : 04/16/2017 07.13 DOCTOR: Thomas Bauer Interpretating Date/Time 04/25/2017 14:16:53
== END 2017-04-25 13:53 | disposition left against medical advice (07) | DRG 541 ==
LOC: NEPE 22:32 → NEDA 04-25 01:46 → N04B 04-25 02:44
PROVIDERS: ADMIT Hospitalist; ATTEND Hospitalist
DX: M86.8X8 Other osteomyelitis, other site (principal); F41.9 Anxiety disorder, unspecified; F17.210 Nicotine dependence, cigarettes, uncomplicated; F19.90 Other psychoactive substance use, unspecified, uncomplicated; R07.9 Chest pain, unspecified
CPT/HCPCS: 71010; 73220; 80053; 81001; 82550; 83605; 83735; 84484; 85025; 85652; 86140; 87040; 93005; 96361; 96365; 96375; A9579; J2405; J3370; J7030; J7050

== ENCOUNTER 2017-05-02 23:36 | Emergency (ER) | payer SELFPAY ==
[~2017-05-02] VITALS: Ht 182.9 cm; Wt 98.0 kg
[2017-05-02 23:39] VITALS: BP 124/62; TEMP 98.6; O2SAT 99
--- NOTE | 2017-05-03 01:56 | PD ---
HPI Chief Complaint: Alcohol/Drug Intoxication Time Seen by Provider: 01:04 Travel History International Travel<30 days: No Contact w/Intl Traveler<30days: No Traveled to known affect area: No History of Present Illness HPI 31-year-old white male presents to emergency department as a transfer from [facility] for medical clearance. 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 He states that he had gone there for detox. He was advised to come to the ER for medical clearance. The patient states that he has not used drugs in 24 hours. He states that he typically uses IV Dilaudid or cocaine. Patient denies any fever or chills. No chest pain or shortness of breath. No nausea vomiting. No numbness or tingling. PFSH Past Medical History Blood Disorders: No Bipolar Disorder: Yes Anxiety: Yes Depression: Yes Cancer: No Cardiovascular Problems: Yes (ENDOCARDITIS) Chemotherapy: No Diabetes: No Diminished Hearing: No Endocrine: No Gastrointestinal Disorders: No Genitourinary: No Headaches: Yes Hepatitis: Yes (HEP C) Immune Disorder: No Implanted Vascular Access Dvce: No Musculoskeletal: No Neurologic: No Psychiatric: Yes (BIPOLAR) Reproductive: No Respiratory: Yes Immunizations Current: Yes Radiation Therapy: No Seizures: No Sleep Apnea: Yes Thyroid Disease: No Ulcer: No Tetanus Vaccination: < 5 Years Influenza Vaccination: Yes Past Surgical History Genitourinary Surgery: Yes ( CHILD ) Other Surgery: No Social History Alcohol Use: No (DENIES) Tobacco Use: Yes (1 PPD) Substance Use: Yes (IV dilaudid and crack today) Allergies-Medications (Allergen,Severity, Reaction): Coded Allergies: *MDRO Multi-Drug Resistant Organism (Verified Adverse Reaction, Unknown, 04/24/17) MRSA (blood & shoulder) - 01/2016 MRSA PCR screen (nares) positive - 02/07/16 Reported Meds & Prescriptions Reported Meds & Active Scripts Active No Active Prescriptions or Reported Medications Review of Systems General / Constitutional: No: Fever Eyes: No: Visual changes HENT: No: Headaches Cardiovascular: No: Chest Pain or Discomfort Respiratory: No: Shortness of Breath Gastrointestinal: No: Abdominal Pain Genitourinary: No: Dysuria Musculoskeletal: No: Pain Skin: No Rash Neurologic: No: Weakness Psychiatric: Positive: Depression, Mood Disorder, Substance Abuse, No: Anxiety , Suicidal Ideations, Disorder of Thought, Homicidal Ideation Endocrine: No: Polydipsia Hematologic/Lymphatic: No: Easy Bruising Physical Exam Narrative GENERAL: Well-developed, well-nourished in no apparent distress. Nontoxic appearing. Patient appears under the influence. HEAD: Normocephalic, atraumatic. EYES: Pupils equal round and reactive. Extraocular motions intact. No scleral icterus. No injection or drainage. ENT: Nose clear. Throat without erythema, tonsillar hypertrophy or exudate. Uvula midline. Airway patent. NECK: Trachea midline. Supple, nontender, moves head freely. No central bony tenderness or spasm. CARDIOVASCULAR: Regular rate and rhythm without murmurs, gallops, or rubs. RESPIRATORY: Clear to auscultation. Breath sounds equal bilaterally. No wheezes , rales, or rhonchi. GASTROINTESTINAL: Abdomen soft, non-tender, nondistended. No hepato-splenomegaly , or palpable masses. No guarding. EXTREMITIES: No clubbing, cyanosis, or edema. No joint tenderness. Patient has scars to the right acromioclavicular joint. No erythema or warmth. BACK: Nontender without deformity. No flank tenderness. NEUROLOGICAL: Awake, alert and oriented x 3 .Cranial nerves grossly intact. Motor and sensory grossly within normal limits. Normal speech. Data Data Last Documented VS Vital Signs Date Time Temp Pulse Resp B/P (MAP) Pulse Ox O2 Delivery O2 Flow Rate FiO2 05/03/17 02:17 79 16 115/64 (81) 100 Room Air 05/02/17 23:39 98.6 Orders Orders Electrocardiogram (05/03/17 01:05) Complete Blood Count With Diff (05/03/17 01:05) Basic Metabolic Panel (Bmp) (05/03/17 01:05) Troponin I (05/03/17 01:05) Ed Discharge Order (05/03/17 02:37) Labs Laboratory Tests Test 05/03/17 02:00 White Blood Count 7.4 TH/MM3 Red Blood Count 4.26 MIL/MM3 Hemoglobin 12.0 GM/DL Hematocrit 35.6 % Mean Corpuscular Volume 83.5 FL Mean Corpuscular Hemoglobin 28.2 PG Mean Corpuscular Hemoglobin Concent 33.8 % Red Cell Distribution Width 14.6 % Platelet Count 192 TH/MM3 Mean Platelet Volume 7.7 FL Neutrophils (%) (Auto) 71.0 % Lymphocytes (%) (Auto) 14.1 % Monocytes (%) (Auto) 11.9 % Eosinophils (%) (Auto) 2.7 % Basophils (%) (Auto) 0.3 % Neutrophils # (Auto) 5.2 TH/MM3 Lymphocytes # (Auto) 1.0 TH/MM3 Monocytes # (Auto) 0.9 TH/MM3 Eosinophils # (Auto) 0.2 TH/MM3 Basophils # (Auto) 0.0 TH/MM3 CBC Comment DIFF FINAL Differential Comment Blood Urea Nitrogen 13 MG/DL Creatinine 1.05 MG/DL Random Glucose 92 MG/DL Calcium Level 8.6 MG/DL Sodium Level 138 MEQ/L Potassium Level 3.6 MEQ/L Chloride Level 105 MEQ/L Carbon Dioxide Level 27.7 MEQ/L Anion Gap 5 MEQ/L Estimat Glomerular Filtration Rate 84 ML/MIN Troponin I LESS THAN 0.02 NG/ML MDM Medical Decision Making Medical Screen Exam Complete: Yes Emergency Medical Condition: Yes Medical Record Reviewed: Yes Interpretation(s) CBC & BMP Diagram 05/03/17 02:00 Calcium Level 8.6 EKG shows NSR, no ST elevation or depression, and no arrhythmias. No significant T-wave inversions. Differential Diagnosis Differential diagnoses: Alcohol intoxication, substance abuse, electrolyte abnormality, malingering Narrative Course Patient's EKG is unremarkable. His CBC and chemistry are unremarkable. I reviewed his MRI as well as his admitting H&P. There is no evidence of endocarditis by ultrasound here in the past. His MRI of his shoulder is improved. I see no reason to do any additional testing at this time. The patient is medically cleared for psychiatric admission. Diagnosis Primary Impression: medical clearance Patient Instructions: General Instructions Additional Instructions: Rest. Increase fluids. Avoid alcohol. Avoid illegal substances. [facility]-up with [facility]. Do not operate a car or any heavy machinery under the influence of alcohol or drugs. Follow-up with a medical doctor this week. Return to the ER for emergencies Med/Other Pt SpecificInfo: No Meds Exist/No RX given Scripts No Active Prescriptions or Reported Meds Disposition: 01 DISCHARGE HOME Condition: Stable Segun Erazo May 03, 2017 01:56
[2017-05-03 02:04] LABS: AUTOMATED NEUTROPHIL # 5.2 TH/MM3 (1.8-7.7); BASOPHIL % 0.3 % (0.0-2.0); EOSINOPHIL # 0.2 TH/MM3 (0-0.4); EOSINOPHIL % 2.7 % (0.0-4.0); HEMATOCRIT 35.6 % (39.0-51.0); HEMO FLAGS DIFF FINAL; LYMPH % 14.1 % (9.0-44.0); MEAN CELL VOLUME 83.5 FL (80.0-100.0); MEAN CORPUSCULAR HEMOGLOBIN 28.2 PG (27.0-34.0); MEAN CORPUSCULAR HGB CONC 33.8 % (32.0-36.0); MONO % 11.9 % (0.0-8.0); PLATELET COUNT 192 TH/MM3 (150-450); RED BLOOD COUNT 4.26 MIL/MM3 (4.50-5.90); RED CELL DISTRIBUTION WIDTH 14.6 % (11.6-17.2); WHITE BLOOD COUNT 7.4 TH/MM3 (4.0-11.0)
[2017-05-03 02:17] VITALS: BP 115/64; O2SAT 100
[2017-05-03 02:31] LABS: ANION GAP 5 MEQ/L (5-15); BICARBONATE 27.7 MEQ/L (21.0-32.0); BLOOD UREA NITROGEN 13 MG/DL (7-18); CHLORIDE 105 MEQ/L (98-107); GLOMERULAR FILTRATION RATE 84 ML/MIN (>89); POTASSIUM 3.6 MEQ/L (3.5-5.1); SODIUM (NA) 138 MEQ/L (136-145)
--- NOTE | 2017-05-03 07:29 | EKG ---
Date Performed: 05/03/2017 Time Performed: 01:24:49 PTAGE: 31 years EKG: Sinus rhythm NORMAL ECG Compared to prior electrocardiogram, rate has increased PREVIOUS TRACING : 04/25/2017 00.46 DOCTOR: Marky Muro Interpretating Date/Time 05/03/2017 07:28:03
== END 2017-05-03 03:29 ==
LOC: NEPD 23:36
DX: F31.9 Bipolar disorder, unspecified (principal); F41.9 Anxiety disorder, unspecified; F17.200 Nicotine dependence, unspecified, uncomplicated; I38 Endocarditis, valve unspecified; F19.10 Other psychoactive substance abuse, uncomplicated
CPT/HCPCS: 80048; 84484; 85025; 93005

== ENCOUNTER 2017-05-05 11:19 | Emergency (ER) | payer SELFPAY ==
[2017-05-05 11:28] VITALS: BP 119/73; PULSE 51; RESP 20; TEMP 98.6; O2SAT 100
--- NOTE | 2017-05-05 11:47 | PD ---
HPI Chief Complaint: Medical Clearance Time Seen by Provider: 11:34 Travel History International Travel<30 days: No Contact w/Intl Traveler<30days: No Traveled to known affect area: No History of Present Illness HPI 31-year-old male brought in by ambulance from [facility] with question of recurrent endocarditis. Patient states he was concerned and anxious about possibly having endocarditis after speaking with people at the [facility]. Patient is currently in for treatment. IV drug abuse, with history of osteomyelitis to the right shoulder, and question of endocarditis in the past. Patient was seen here 3 days ago and had a full workup under Morales ROGERS and medically cleared to go to [facility]. Patient has no memory of that visit 3 days prior to this. Currently the patient has no symptoms, but did have some chest pain earlier, which could've been from anxiety according to the patient. Patient is currently en route to a detention house in his addiction treatment plan. Currently the patient has no pain. His vitals are stable. He has no fever. He has a history of MRSA. Patient states he is cleaned from all drugs and alcohol since being admitted to [facility] 3 days ago. He has no known drug allergies. PFSH Past Medical History Blood Disorders: No Bipolar Disorder: Yes Anxiety: Yes Depression: Yes Cancer: No Cardiovascular Problems: Yes (ENDOCARDITIS) Chemotherapy: No Diabetes: No Diminished Hearing: No Endocrine: No Gastrointestinal Disorders: No Genitourinary: No Headaches: Yes Hepatitis: Yes (HEP C) Immune Disorder: No Implanted Vascular Access Dvce: No Musculoskeletal: No Neurologic: No Psychiatric: Yes (BIPOLAR) Reproductive: No Respiratory: Yes Immunizations Current: Yes Radiation Therapy: No Seizures: No Sleep Apnea: Yes Thyroid Disease: No Ulcer: No Tetanus Vaccination: < 5 Years Past Surgical History Genitourinary Surgery: Yes ( CHILD ) Other Surgery: No Social History Alcohol Use: No (DENIES) Tobacco Use: Yes (1 PPD) Substance Use: Yes (IV dilaudid and crack today) Allergies-Medications (Allergen,Severity, Reaction): Coded Allergies: *MDRO Multi-Drug Resistant Organism (Verified Adverse Reaction, Unknown, 04/24/17) MRSA (blood & shoulder) - 01/2016 MRSA PCR screen (nares) positive - 02/07/16 Reported Meds & Prescriptions Reported Meds & Active Scripts Active No Active Prescriptions or Reported Medications Review of Systems Except as stated in HPI: all other systems reviewed are Neg General / Constitutional: No: Fever Eyes: No: Visual changes HENT: No: Headaches Cardiovascular: No: Chest Pain or Discomfort Respiratory: No: Shortness of Breath Gastrointestinal: No: Abdominal Pain Genitourinary: No: Dysuria Musculoskeletal: No: Pain Skin: No Rash Neurologic: No: Weakness Psychiatric: No: Depression Endocrine: No: Polydipsia Hematologic/Lymphatic: No: Easy Bruising Physical Exam Narrative GENERAL: Patient appears distressed. SKIN: Warm and dry. Normal color. Normal turgor. Well healed scars over the right shoulder. No signs of current sialitis, puncture wounds, or lymphadenitis. HEAD: Atraumatic. Normocephalic. EYES: Pupils equal and round. No scleral icterus. No injection or drainage. ENT: No nasal bleeding or discharge. Mucous membranes pink and moist. NECK: Trachea midline. No JVD. Supple nontender. CARDIOVASCULAR: Regular rate and rhythm. No murmurs gallops or rubs RESPIRATORY: No accessory muscle use. Clear to auscultation. Breath sounds equal bilaterally. GASTROINTESTINAL: Abdomen soft, non-tender, nondistended. Hepatic and splenic margins not palpable. MUSCULOSKELETAL: Extremities without clubbing, cyanosis, or edema. No obvious deformities. NEUROLOGICAL: Awake and alert. No obvious cranial nerve deficits. Motor grossly within normal limits. Five out of 5 muscle strength in the arms and legs. Normal speech. PSYCHIATRIC: Appropriate mood and affect; insight and judgment normal. Data Data Last Documented VS Vital Signs Date Time Temp Pulse Resp B/P (MAP) Pulse Ox O2 Delivery O2 Flow Rate FiO2 05/05/17 11:28 98.6 51 20 119/73 (88) 100 Orders Orders Electrocardiogram (05/05/17 ) [facility] Medical Decision Making Medical Screen Exam Complete: Yes Emergency Medical Condition: Yes Medical Record Reviewed: Yes Differential Diagnosis History of IV drug use. Anxiety. Reports of chest pain. Question history of endocarditis. Narrative Course The patient is felt to be medically stable at time of exam. All vitals are within normal limits. EKG here is repeated and shown to have a normal sinus rhythm without ST changes suggestive of any cardiac injury or infection. Rate is 56 bpm. Further labs are not felt warranted based on the patient's history and recent medical clearance. Patient is medically cleared for discharge and admission to a [facility]. Diagnosis Primary Impression: Anxiety Additional Impression: History of intravenous drug use in remission Referrals: [facility] (Out patient) Patient Instructions: General Instructions Additional Instructions: The patient is felt to be medically stable at time of exam. All vitals are within normal limits. EKG here is repeated and shown to have a normal sinus rhythm without ST changes suggestive of any cardiac injury or infection. Further labs are not felt warranted based on the patient's history and recent medical clearance. Patient is medically cleared for discharge and admission to a [facility]. Med/Other Pt SpecificInfo: No Meds Exist/No RX given Scripts No Active Prescriptions or Reported Meds Disposition: DISCHARGE HOME Condition: Stable Prieto Fairbanks May 05, 2017 11:47
--- NOTE | 2017-05-06 14:23 | EKG ---
Date Performed: 05/05/2017 Time Performed: 12:15:27 PTAGE: 31 years EKG: SINUS BRADYCARDIA WITH SINUS ARRHYTHMIA BORDERLINE ECG PREVIOUS TRACING : 05/03/2017 01.24 DOCTOR: Ronaldo Jones Interpretating Date/Time 05/06/2017 14:18:05
== END 2017-05-05 12:35 | disposition home or self-care (01) ==
LOC: NEPC 11:19
DX: F41.9 Anxiety disorder, unspecified (principal); F17.200 Nicotine dependence, unspecified, uncomplicated
CPT/HCPCS: 93005